=== PATIENT | female | born 1935 | race Caucasian/White ===

== ENCOUNTER 2020-08-30 03:02 | Emergency (ER) | payer OTHER, SELFPAY ==
[2020-08-30] VITALS (15 sets, daily range): BP systolic 142–190; BP diastolic 59–90; PULSE 60–74; RESP 16–25; TEMP 36.4; O2SAT 89–100
--- NOTE | ~2020-08-30 | CT_ITS ---
EXAMINATION: CT brain wo con DATE: 08/30/2020 03:31 INDICATION: Headache and syncope. TECHNIQUE: Computed tomography (CT) of the head was performed without intravenous contrast. Sagittal and coronal reconstructions were performed. The mA was adjusted according to patient size. Iterative reconstruction technique was employed. The dose-length product was 605.33 mGy-cm. COMPARISON: Brain MR dated 04/15/2017 FINDINGS: Small region of cystic encephalomalacia in the right peritrigonal white matter consistent with small lacunar infarct. No acute intracranial hemorrhage, acute infarction or abnormal extra axial fluid col lection. There is mild to moderate scattered white matter hypoattenuation consistent with chronic sma ll vessel ischemic disease. Symmetric prominence of the sulci consistent with mild age-appropriate di ffuse cerebral volume loss. Ventricles are normal and symmetric. No mass/mass effect. Changes of bila teral intraocular lens replacement. The orbits, paranasal sinuses and mastoid air cells are normal. I ntracranial calcified cerebral atherosclerosis is noted. IMPRESSION: 1. No acute intracranial process. 2. 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 3. Age-related changes including mild diffuse volume loss and mild to moderate scattered white matter hypoattenuation consistent with chronic small vessel ischemic disease. Reviewed, dictated and finalized at location A. IMPRESSION: 1. No acute intracranial process. 2. 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 3. Age-related changes including mild diffuse volume loss and mild to moderate scattered white matter hypoattenuation consistent with chronic small vessel isc hemic disease.
--- NOTE | 2020-08-30 03:04 | ECG_ITS ---
Measurements Intervals [place] Rate: 64 P: 48 [place]: 224 QRS: 11 QRSD: 82 T: 48 QT: 381 QTc: 395 Interpretive Statements SINUS RHYTHM WITH FIRST DEGREE AV BLOCK BASELINE ARTIFACT- I, III, AVL, AVF, V1-V3 ABNORMAL ECG Electronically Signed On 08-30-2020 8:31:19 CDT by Toney Bradley D.O.
--- NOTE | 2020-08-30 03:04 | ED.SYNCOPE ---
HPI - Syncope General Chief Complaint: Syncope Stated Complaint: passed out Time Seen by Provider: 08/30/20 03:03 History of Present Illness HPI narrative: 84 yo female brought in from home by private vehicle. She got up from bed to go to the bathroom. She remembers that it took her longer than usual to begin urinating then usual. She then stood up from the toilet and then next thing she remembers she was on the floor. After she awoke she vomited and had a loose stool. EMS was called, but by the time they arrived her vitals were normal and she chose to come in by car. On arrival here she says that she feels nauseated and has a posterior STEVENS. She had a similar STEVENS yesterday following a physical therapy session for vertigo. Related Data Home Medications Medication Instructions Recorded Confirmed antiarthritic combination no.2 900 mg PO 11/16/19 03/14/20 mg tablet bimatoprost 0.01 % eye drops 1 drop EACH EYE DAILY 11/16/19 03/14/20 cholecalciferol (vitamin D3) 25 1,000 unit PO DAILY 11/16/19 03/14/20 mcg (1,000 unit) capsule multivitamin 1 tablet PO DAILY 11/16/19 03/14/20 vit A 7,160 unit-vit C 113 mg-vit tablet PO 11/16/19 03/14/20 E 100 [id number] tablet losartan 25 mg tablet 25 mg PO DAILY 08/20/20 losartan 08/30/20 Allergies Allergy/AdvReac Type Severity Reaction Status Date / Time latex Allergy Severe RASH Verified 08/30/20 03:27 codeine Allergy Mild DECREASED Verified 08/30/20 03:27 BP Penicillins Allergy Mild RASH Verified 08/30/20 03:27 Sulfa (Sulfonamide Allergy Unknown unknown Verified 08/30/20 03:27 Antibiotics) epinephrine AdvReac Intermediate Drop in BP Verified 08/30/20 03:27 Review of Systems Review of Systems: All systems reviewed & are unremarkable except as noted in HPI and below Constitutional: Constitutional: Denies fever(s) ENT: Reports vertigo and Reports dizziness Cardiovascular: Cardiovascular: Denies chest pain Respiratory: Respiratory: Denies dyspnea Gastrointestinal: Gastrointestinal: Denies abdominal pain, Reports diarrhea, Reports nausea and Reports vomiting Genitourinary: Genitourinary: Denies hematuria and Denies dysuria Neurologic: Denies confusion, Reports vertigo, Reports syncope, Reports headache(s) and Denies numbness PMFSH Past Medical History Medical History Benign essential tremor Bladder prolapse (~2011) BPPV (benign paroxysmal positional vertigo) Essential (primary) hypertension Glaucoma open angle Hematuria Hyperlipidemia IBS (irritable bowel syndrome) Right foot pain (~2018) Seborrheic dermatitis Temporal arteritis (~2012) Urinary frequency Urinary incontinence Surgical History Surgical History H/O cataract extraction (~2012) History of knee surgery (~2009) Hx of hysterectomy (~2011) Family History Family History Sibling Patient's sister is in good health Family history of malignant neoplasm Patient's brother is Father Family history of malignant neoplasm Patient's father is Mother Family history of malignant neoplasm Patient's mother is Diabetes mellitus Family history of cardiovascular disease Social History Social History Smoking status: Never smoker Alcohol intake: never Exam Const: General: no acute distress and alert Nutritional Appearance: well nourished Orientation/consciousness: patient oriented x3 HENMT: Head: normal to inspection Resp: Effort & Inspection: normal respiratory effort Auscultation: clear to auscultation bilaterally Cardio: Rate: regular rate Rhythm: regular rhythm GI: GI Palp: Yes Soft to palpation and No Tenderness to palpation present (GI) Skin: General skin exam: normal color Neuro: General: patient oridede
--- NOTE | 2020-08-30 03:24 | PC.NURSE ---
Pt. to ct.
--- NOTE | 2020-08-30 03:24 | PC.NURSE ---
Pt. states she cannot go to the bathroom at this time.
[2020-08-30] MEDS: diphenhydrAMINE HCl INJ 50 MG/ML VIAL 25 MG IV PUSH (03:37)
[2020-08-30] MEDS: METOCLOPRAMIDE HCL INJ 10 MG/2 ML VIAL IV PUSH (03:37)
[2020-08-30] MEDS: SODIUM CHLORIDE 0.9% IV 500 ML 999 ML IV CONT (03:37)
[2020-08-30 03:52] LABS: Basophils Absolute Auto 0.1 K/mm3 (0.0-0.1); Basophils Percent Auto 0.4 % (0.2-1.2); Eosinophils Absolute Auto 0.1 K/mm3 (0-0.3); Eosinophils Percent Auto 0.7 % (0-4.4); Hematocrit 39.4 % (37.0-47.0); Hemoglobin 13.2 g/dL (12.0-15.0); Immature Granulocyte Percent A 0.7 % (0-0.5); Lymphocytes Absolute Auto 3.54 K/mm3 (0.9-3.2); Lymphocytes Percent Auto 25.6 % (18.3-44.2); Mean Corpuscular HGB Conc 33.5 g/dl (32-36); Mean Corpuscular Hemoglobin 31.8 pg (26-34); Mean Corpuscular Volume 94.9 fl (80-100); Mean Platelet Volume 8.8 fl (7.4-10.4); Monocytes Absolute Auto 1.5 K/mm3 (0.1-0.6); Monocytes Percent Auto 10.9 % (2.6-8.5); Neutrophils Absolute Auto 8.5 K/mm3 (1.3-6.7); Neutrophils Percent Auto 61.7 % (45.5-73.1); Platelet Count Result 408 k/mm3 (150-375); Red Blood Count 4.15 M/mm3 (4.2-5.4); Red Cell Distribution Width 13.3 % (11.5-14.5); White Blood Count 13.8 K/mm3 (4.5-10.0)
[2020-08-30 04:04] LABS: Alanine Aminotransferase 19 U/L (4-35); Albumin Level 3.9 g/dL (3.5-5.1); Alkaline Phosphatase 62 U/L (38-126); Anion Gap 10 mmol/L (8-16); Aspartate Amino Transferase 22 U/L (14-36); Bilirubin,Total 0.2 mg/dL (0.2-1.3); Blood Urea Nitrogen 19 mg/dL (7-17); Calcium 9.5 mg/dL (8.4-10.2); Carbon Dioxide 29 mmol/L (22-30); Chloride 101 mmol/L (98-107); Estimated CRCL calculation 42 ml/min; Estimated Glomerular Filt Rate > 60; Glucose 87 mg/dL (65-105); Lipase 90 U/L (23-300); Potassium 3.4 mmol/L (3.4-5.0); Sodium 140 mmol/L (137-145)
[2020-08-30 04:16] LABS: Add Urine Microscopic? NO; Appearance Urine Clear (Clear); Bilirubin Urine Negative (Negative); Blood Urine Negative (Negative); Color Urine Yellow (Yellow); Glucose Urine UA Negative (Negative); Ketones Urine Negative (Negative); Leukocyte Esterase Ur Negative LEU/UL (Negative); Nitrate Urine Negative (Negative); Protein Urine Negative (Negative); Specific Grav Ur 1.013 (1.001-1.035); Urobilinogen Urine Negative mg/dL (<2.0)
== END 2020-08-30 05:30 | disposition home or self-care (01) ==
PROVIDERS: Emergency Provider Emergency Medicine
DX: R55 Syncope and collapse (principal); R11.2 Nausea with vomiting, unspecified; I10 Essential (primary) hypertension; H40.9 Unspecified glaucoma; E78.5 Hyperlipidemia, unspecified; K58.9 Irritable bowel syndrome, unspecified; Z98.49 Cataract extraction status, unspecified eye; I44.0 Atrioventricular block, first degree
CPT/HCPCS: 36415; 70450; 80053; 81003; 83690; 85025; 93005; 96361; 96374; 96375; 99284; J1200; J2765; J7040

== ENCOUNTER → 2020-09-03 11:03 | Outpatient (CLI) | payer OTHER, SELFPAY ==
--- NOTE | ~2020-09-03 | XR_ITS ---
XR sacrum coccyx min 2V DATE: 09/03/2020 11:31 INDICATION: Low back pain, sacral coccyx, coccygeal pain TECHNIQUE: AP, angled AP and lateral views of sacrum and coccyx COMPARISON: 09/27/2018 CT abdomen pelvis FINDINGS: Diffuse osteopenia. No sacral or coccygeal fracture or bone destruction is evident. Normal alignment at the pubic symphys is and sacroiliac joints. Hip joint spaces appear symmetric and relatively preserved. Some soft tissu e calcifications of the left buttock are noted. IMPRESSION: Osteopenia; no sacral or coccygeal fracture or bone destruction is detected Reviewed, dictated and finalized at location A.
--- NOTE | ~2020-09-03 | XR_ITS ---
XR cervical spine 4-5V DATE: 09/03/2020 11:31 INDICATION: Neck pain TECHNIQUE: AP, open-mouth, lateral, swimmer views COMPARISON: None FINDINGS: C1 and C2 are normally aligned and the odontoid process is intact. No fracture or dislocati on or locked facet or prevertebral soft tissue swelling. There is mild loss of interspace height at C5-6 and moderate loss of interspace height at C6-7. There is mild to moderate uncovertebral joint spurring at C5-6 and C6-7 and degenerative change at the apo physeal joints. IMPRESSION: No fracture or dislocation Degenerative changes Reviewed, dictated and finalized at location A.
== END ==
PROVIDERS: PCP Family Medicine; Visit Provider Family Medicine
DX: M50.30 Other cervical disc degeneration, unspecified cervical region (principal); M85.88 Other specified disorders of bone density and structure, other site
CPT/HCPCS: 72050; 72220

== ENCOUNTER 2020-09-25 16:31 | Outpatient (CLI) | payer OTHER, SELFPAY ==
--- NOTE | ~2020-09-25 | MR_ITS ---
EXAMINATION: MR brain/brain stem wo con EXAM DATE: 09/25/2020 17:13 INDICATION: Vertigo. TECHNIQUE: Magnetic resonance imaging (MRI) of the brain/brain stem obtained without contrast. Sagitt al T1, axial diffusion, gradient echo (T2*), T1, T2, FLAIR sequences obtained. Comparison is made to prior examination from 04/15/2017. FINDINGS: There are no areas of restricted diffusion to suggest acute infarction. Punctate old infarc tion the right middle cerebral peduncle. There is no acute hemorrhage seen on the T2*, a hemosiderin sensitive sequence. No intraparenchymal brain mass lesion. There is moderate periventricular and sub cortical T2/FLAIR signal hyperintensity, nonspecific but probably related to small vessel ischemic di sease (microangiopathy). There is moderate prominence of the sulci and ventricles related to cerebr al atrophy. There are no extra-axial collections. Flow voids are seen in the cerebral arteries on the T2-weighted sequences consistent with their expected patency. Patient has had bilateral ocular l ens surgery. Soft tissue is unremarkable. IMPRESSION: 1. No acute intracranial findings. 2. Chronic age related findings. 3. 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 Reviewed, dictated and finalized at location A. 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
== END 2020-09-25 16:32 | disposition home or self-care (01) ==
PROVIDERS: PCP Physician Assistant; Visit Provider Physician Assistant
DX: R42 Dizziness and giddiness (principal); I63.81 Other cerebral infarction due to occlusion or stenosis of small artery; Z86.73 Personal history of transient ischemic attack (TIA), and cerebral infarction without residual deficits
CPT/HCPCS: 70551

== ENCOUNTER 2020-12-27 15:07 | Outpatient (CLI) | payer OTHER, SELFPAY ==
[2020-12-27 15:43] LABS: Anion Gap 9 mmol/L (8-16); Blood Urea Nitrogen 16 mg/dL (7-17); Calcium 8.6 mg/dL (8.4-10.2); Carbon Dioxide 32 mmol/L (22-30); Chloride 84 mmol/L (98-107); Estimated Glomerular Filt Rate > 60; Glucose 84 mg/dL (65-105); Potassium 3.4 mmol/L (3.4-5.0); Sodium 125 mmol/L (137-145)
== END 2020-12-27 15:08 | disposition home or self-care (01) ==
LOC: ANHLAB 15:09
PROVIDERS: PCP Physician Assistant; Visit Provider Physician Assistant
DX: E87.1 Hypo-osmolality and hyponatremia (principal)
CPT/HCPCS: 36415; 80048

== ENCOUNTER 2021-01-02 11:56 | Outpatient (CLI) | payer OTHER, SELFPAY ==
[2021-01-02 12:34] LABS: Anion Gap 5 mmol/L (8-16); Blood Urea Nitrogen 10 mg/dL (7-17); Carbon Dioxide 31 mmol/L (22-30); Chloride 101 mmol/L (98-107); Estimated Glomerular Filt Rate > 60; Glucose 89 mg/dL (65-105); Potassium 4.2 mmol/L (3.4-5.0); Sodium 137 mmol/L (137-145)
[2021-01-02 15:26] LABS: Sodium Urine Random 99 meq/L
[2021-01-05 23:10] LABS: Osmolality, Urine 283 mOsm/kg (50-1200)
== END 2021-01-02 11:57 | disposition home or self-care (01) ==
PROVIDERS: PCP Physician Assistant; Visit Provider Physician Assistant
DX: E87.1 Hypo-osmolality and hyponatremia (principal)
CPT/HCPCS: 36415; 80048; 83935; 84300

== ENCOUNTER 2021-01-11 09:11 | Outpatient (CLI) | payer OTHER, SELFPAY ==
[2021-01-11 10:20] LABS: Anion Gap 4 mmol/L (8-16); Blood Urea Nitrogen 13 mg/dL (7-17); Calcium 8.9 mg/dL (8.4-10.2); Carbon Dioxide 29 mmol/L (22-30); Chloride 105 mmol/L (98-107); Estimated Glomerular Filt Rate > 60; Glucose 96 mg/dL (65-105); Potassium 4.3 mmol/L (3.4-5.0); Sodium 138 mmol/L (137-145)
[2021-01-11 10:51] LABS: Cortisol Random 6.02 ug/dL
[2021-01-15 15:31] LABS: Adrenocorticotropic Hormone 9 pg/mL (6-50)
== END 2021-01-11 09:12 | disposition home or self-care (01) ==
PROVIDERS: PCP Physician Assistant; Visit Provider Physician Assistant
DX: E87.1 Hypo-osmolality and hyponatremia (principal)
CPT/HCPCS: 36415; 80048; 82024; 82533

== ENCOUNTER 2022-05-14 18:37 | Emergency (ER) | payer OTHER, SELFPAY ==
[2022-05-14] VITALS (9 sets, daily range): BP systolic 186–195; BP diastolic 71–79; PULSE 57–61; RESP 18; TEMP 36.6; O2SAT 95–100
--- NOTE | ~2022-05-14 | CT_ITS ---
EXAMINATION: CT brain wo con DATE: 05/14/2022 19:22 INDICATION: Headache, dizziness. 229/98 blood pressure. TECHNIQUE: Computed tomography (CT) of the head was performed without intravenous contrast. The mA wa s adjusted according to patient size. Iterative reconstruction technique was employed. Exam dose: 60 5.33 mGy-cm total exam DLP. COMPARISON: 09/25/2020 MRI brain/brainstem 08/30/2020 CT brain FINDINGS: There is prominent bilateral carotid siphon and supraclinoid internal carotid artery calcif ication There is nonspecific diminished attenuation of the cerebral white matter, likely due to chronic small vessel ischemic changes. There is prominent cerebellar and cerebral volume loss. No subdural or epidural hematoma is detected. Included paranasal sinuses and mastoid air cells are normally developed and aerated. No fracture or bone destruction of the cranial vault. IMPRESSION: Cerebral atherosclerosis and chronic small vessel ischemic changes of the cerebral white matter No acute intracranial finding Reviewed, dictated and finalized at Location [facility]. Reviewed, dictated and finalized at location A.
--- NOTE | 2022-05-14 19:14 | ECG_ITS ---
Measurements Intervals [place] Rate: 57 P: 13 [place]: 274 QRS: -7 QRSD: 86 T: 24 QT: 406 QTc: 398 Interpretive Statements SINUS BRADYCARDIA WITH FIRST DEGREE AV BLOCK EARLY PRECORDIAL R/S TRANSITION VOLTAGE CRITERIA FOR LVH ABNORMAL ECG Electronically Signed On 05-14-2022 20:29:28 CDT by Toney Bradley D.O.
--- NOTE | 2022-05-14 19:14 | ED.GENADULT ---
HPI - General Adult General Chief complaint: Unspecified Stated complaint: high blood pressure Time Seen by Provider: 05/14/22 19:01 Source: RN notes reviewed History of Present Illness HPI narrative: Patient presents emergency department from home for hypertension. Patient states that she has been checking her blood pressure at home and noticed to be elevated in the 200s systolic. Patient states that with that she has mild dizziness but states she always has some mild dizziness she denies any recent illness she denies any fevers or chills chest pain shortness of breath abdominal pain nausea vomiting or any other symptoms. States that she does have a history of hypertension and takes medication and she did take her medication this morning Related Data Home Medications Medication Instructions Recorded Confirmed antiarthritic combination no.2 900 mg PO 11/16/19 03/14/20 mg tablet (glucosamine-chondroitin) bimatoprost 0.01 % eye drops 1 drop ophthalmic (eye) DAILY 11/16/19 03/14/20 (Lumigan) cholecalciferol (vitamin D3) 25 1,000 unit PO DAILY 11/16/19 03/14/20 mcg (1,000 unit) capsule multivitamin 1 tablet PO DAILY 11/16/19 03/14/20 vit A 7,160 unit-vit C 113 mg-vit tablet PO 11/16/19 03/14/20 E 100 ccuw-mgej-eyhixk tablet losartan 25 mg tablet 25 mg PO DAILY 08/20/20 losartan 25 mg tablet 08/30/20 Allergies Allergy/AdvReac Type Severity Reaction Status Date / Time latex Allergy Severe RASH Verified 08/30/20 03:27 codeine Allergy Mild DECREASED Verified 08/30/20 03:27 BP Penicillins Allergy Mild RASH Verified 08/30/20 03:27 Sulfa (Sulfonamide Allergy Unknown unknown Verified 08/30/20 03:27 Antibiotics) epinephrine AdvReac Intermediate Drop in BP Verified 08/30/20 03:27 Review of Systems Review of Systems: Gen.: Denies fevers or chills Eyes: Denies eye pain or visual change ENT: Denies congestion Respiratory: Denies shortness of breath or cough CV: Denies chest pain or palpitations GI: Denies abdominal pain nausea, emesis or diarrhea Musculoskeletal: Denies back pain or muscle pain Neuro: Reports mild dizziness headache Skin: Denies rash Except as documented, all other systems reviewed and negative [facility] Past Medical History Medical History Benign essential tremor Bladder prolapse (~2011) BPPV (benign paroxysmal positional vertigo) Essential (primary) hypertension Glaucoma open angle Hematuria Hyperlipidemia IBS (irritable bowel syndrome) Right foot pain (~2018) Seborrheic dermatitis Temporal arteritis (~2012) Urinary frequency Urinary incontinence Surgical History Surgical History H/O cataract extraction (~2012) History of knee surgery (~2009) Hx of hysterectomy (~2011) Family History Family History Sibling Patient's sister is in good health Family history of malignant neoplasm Patient's brother is Father Family history of malignant neoplasm Patient's father is Mother Family history of malignant neoplasm Patient's mother is Diabetes mellitus Family history of cardiovascular disease Social History Social History Smoking status: Never smoker Alcohol intake: never Exam Narrative: APPEARANCE: No acute distress, nontoxic, resting in bed EYES: EOMI HEENT: Normocephalic, atraumatic, OMM RESPIRATORY: No respiratory distress Clear to auscultation bilaterally with no rhonchi wheezing or rales. CARDIOVASCULAR: Regular rate and rhythm without murmurs rubs or gallops. ABDOMINAL: Soft, nontender, nondistended, no rebound or guarding MUSCULOSKELETAl: Moves all extremities. No clubbing, cyanosis or edema. NEURO: Awake and alert x 4. Following commands, speech normal, no focal deficits SKIN:: Warm, dry. No rashes
[2022-05-14 19:46] LABS: Basophils Absolute Auto 0.1 K/mm3 (0.0-0.1); Eosinophils Absolute Auto 0.2 K/mm3 (0-0.3); Eosinophils Percent Auto 2.8 % (0-4.4); Hematocrit 35.1 % (37.0-47.0); Hemoglobin 11.8 g/dL (12.0-15.0); Immature Granulocyte Absolute 0.02 K/mm3 (0.00-0.031); Immature Granulocyte Percent A 0.2 % (0-0.5); Lymphocytes Absolute Auto 2.64 K/mm3 (0.9-3.2); Lymphocytes Percent Auto 32.6 % (18.3-44.2); Mean Corpuscular HGB Conc 33.6 g/dl (32-36); Mean Corpuscular Hemoglobin 31.1 pg (26-34); Mean Corpuscular Volume 92.4 fl (80-100); Mean Platelet Volume 9.1 fl (7.4-10.4); Monocytes Absolute Auto 0.9 K/mm3 (0.1-0.6); Monocytes Percent Auto 11.1 % (2.6-8.5); Neutrophils Absolute Auto 4.2 K/mm3 (1.3-6.7); Neutrophils Percent Auto 52.3 % (45.5-73.1); Platelet Count Result 333 k/mm3 (150-375); Red Cell Distribution Width 13.2 % (11.5-14.5); White Blood Count 8.1 K/mm3 (4.5-10.0)
[2022-05-14 19:48] LABS: Appearance Urine Clear (Clear); Bilirubin Urine Negative (Negative); Color Urine Yellow (Yellow); Glucose Urine UA Negative (Negative); Ketones Urine Trace mg/dL (Negative); Leukocyte Esterase Ur Negative LEU/UL (Negative); Nitrate Urine Negative (Negative); Protein Urine Negative (Negative); Specific Grav Ur 1.015 (1.001-1.035); Urobilinogen Urine 0.2 mg/dL (<2.0)
[2022-05-14 19:56] LABS: Alanine Aminotransferase 21 U/L (6-35); Albumin Level 4.3 g/dL (3.5-5.1); Alkaline Phosphatase 64 U/L (38-126); Anion Gap 9 mmol/L (8-16); Aspartate Amino Transferase 35 U/L (14-36); Bilirubin,Total 0.3 mg/dL (0.2-1.3); Blood Urea Nitrogen 14 mg/dL (7-17); Calcium 8.8 mg/dL (8.4-10.2); Carbon Dioxide 22 mmol/L (22-30); Chloride 97 mmol/L (98-107); Estimated CRCL calculation 46 ml/min; Estimated Glomerular Filt Rate > 60; Glucose 92 mg/dL (65-110); Potassium 3.8 mmol/L (3.4-5.0); Sodium 128 mmol/L (137-145)
[2022-05-14 19:57] LABS: Bacteria Urine Trace /hpf; Mucus Urine Rare /lpf; RBC Urine 0-2 /hpf (0-2); Squamous Epithelial Cell Urine Occasional /hpf (Few); WBC Urine 0-3 /hpf
[2022-05-14 19:58] LABS: Add Urine Microscopic? YES; Blood Urine Trace-Intact (Negative)
== END 2022-05-14 22:00 | disposition home or self-care (01) ==
PROVIDERS: Emergency Provider Emergency Medicine; PCP Family Medicine
DX: I10 Essential (primary) hypertension (principal); E78.5 Hyperlipidemia, unspecified
CPT/HCPCS: 36415; 70450; 80053; 81001; 85025; 93005; 99284

== ENCOUNTER 2022-08-24 09:59 | Emergency (ER) | payer OTHER, SELFPAY ==
[2022-08-24 10:14] VITALS: BP 114/57; PULSE 66; RESP 20; TEMP 36.9; O2SAT 100
--- NOTE | 2022-08-24 10:18 | ED.GENADULT ---
HPI - General Adult General Chief complaint: Dizziness Stated complaint: dizziness Time Seen by Provider: 08/24/22 10:18 Mode of arrival: ambulatory Limitations: no limitations History of Present Illness HPI narrative: 86-year-old female presents with concern for acute onset of dizziness, low blood pressure, urine frequency, dysuria. She reports she recently had COVID, she finished her COVID antiviral medications yesterday. She reports she typically has a high blood pressure, when she felt dizzy she checked it and it was low with the diastolic of 50. She reports chills overnight. She reports left low back pain MD complaint: Dizziness Related Data Home Medications Medication Instructions Recorded Confirmed antiarthritic combination no.2 900 mg PO 11/16/19 03/14/20 mg tablet (glucosamine-chondroitin) bimatoprost 0.01 % eye drops 1 drop ophthalmic (eye) DAILY 11/16/19 03/14/20 ([place]igan) cholecalciferol (vitamin D3) 25 1,000 unit PO DAILY 11/16/19 03/14/20 mcg (1,000 unit) capsule multivitamin 1 tablet PO DAILY 11/16/19 03/14/20 vit A 7,160 unit-vit C 113 mg-vit tablet PO 11/16/19 03/14/20 E 100 vigt-ubqe-bwgpvq tablet losartan 25 mg tablet 25 mg PO DAILY 08/20/20 Allergies Allergy/AdvReac Type Severity Reaction Status Date / Time latex Allergy Severe RASH Verified 08/30/20 03:27 codeine Allergy Mild DECREASED Verified 08/30/20 03:27 BP Penicillins Allergy Mild RASH Verified 08/30/20 03:27 Sulfa (Sulfonamide Allergy Unknown unknown Verified 08/30/20 03:27 Antibiotics) epinephrine AdvReac Intermediate Drop in BP Verified 08/30/20 03:27 Review of Systems Review of Systems: CONSTITUTIONAL: Reports malaise, chills CARDIOVASCULAR: Denies chest pain, palpitations, or edema. RESPIRATORY: Denies cough or dyspnea. GASTROINTESTINAL: Denies abdominal pain, vomiting, diarrhea. Reports nausea GENITOURINARY: Denies dysuria report, frequency, small amounts of urine MUSCULOSKELETAL: Reports left low back pain, myalgia. NEUROLOGIC: Reports dizziness All systems reviewed & are unremarkable except as noted in HPI and below PMFSH Past Medical History Medical History Benign essential tremor Bladder prolapse (~2011) BPPV (benign paroxysmal positional vertigo) Essential (primary) hypertension Glaucoma open angle Hematuria Hyperlipidemia IBS (irritable bowel syndrome) Right foot pain (~2018) Seborrheic dermatitis Temporal arteritis (~2012) Urinary frequency Urinary incontinence Surgical History Surgical History H/O cataract extraction (~2012) History of knee surgery (~2009) Hx of hysterectomy (~2011) Family History Family History Sibling Patient's sister is in good health Family history of malignant neoplasm Patient's brother is Father Family history of malignant neoplasm Patient's father is Mother Family history of malignant neoplasm Patient's mother is Diabetes mellitus Family history of cardiovascular disease Social History Social History Smoking status: Never smoker Alcohol intake: never Comments At time of signature, agree with nursing past medical, surgical, social and family history. There is no relevant family history pertinent to the presenting complaint Exam Narrative: GENERAL: Nontoxic appearing and in no acute distress. HEAD: Normocephalic. EYES: PERRLA, conjunctivae clear. NECK: Supple. No lymphadenopathy CHEST: Clear to auscultation. No respiratory distress. HEART: Regular rate and rhythm. ABDOMEN: Soft, mild right lower quadrant tenderness nondistended, normal active bowel sounds, no palpable or pulsatile masses, no guarding. Last CVA tenderness SKIN: Warm, dry, no rash. NEURO: Alert and oriented
== END 2022-08-24 10:59 | disposition short-term general hospital (02) ==
PROVIDERS: Emergency Provider Nurse Practitioner
DX: N39.0 Urinary tract infection, site not specified (principal); I10 Essential (primary) hypertension; H40.9 Unspecified glaucoma; E78.5 Hyperlipidemia, unspecified; Z86.16 Personal history of COVID-19
CPT/HCPCS: 81003; 99212; G0463

== ENCOUNTER 2022-08-24 11:14 | Inpatient (IN) | payer OTHER, SELFPAY ==
--- NOTE | ~2022-08-24 | CT_ITS ---
EXAMINATION: CT abdomen pelvis w con DATE: 08/24/2022 13:17 INDICATION: Left lower quadrant abdominal pain. TECHNIQUE: Computed tomography (CT) of the abdomen and pelvis was performed with 100 mL Omnipaque 350 intravenous contrast. Automated exposure control and iterative reconstruction technique were employe d. The dose-length product was 349.57 mGy-cm. COMPARISON: CT abdomen and pelvis 09/27/2018 FINDINGS: The visualized portions of the lung bases demonstrate mild atelectasis. No pleural effusion . The heart size is normal. No pericardial effusion. There is a moderate-sized sliding hiatal hernia. There are cysts in the liver measuring up to 12 mm. The gallbladder, spleen, pancreas, adrenal gland s, and kidneys are normal. There is urothelial thickening involving the ureters bilaterally, consiste nt with pyelitis. There is diverticulosis of the colon without evidence of diverticulitis. The append ix is normal. There are no dilated loops of bowel. There are no pathologically enlarged lymph nodes. There is no free intraperitoneal fluid. There is mild chronic anterior wedging of T9-T12 vertebral colton dies. There is mild thoracolumbar spondylosis. IMPRESSION: 1. Bilateral pyelitis. 2. Moderate-sized sliding hiatal hernia. Reviewed, dictated and finalized at location B.
[2022-08-24 11:28] VITALS: BP 137/63; PULSE 66; RESP 18; TEMP 36.6; O2SAT 99
[2022-08-24 11:31] LABS: Basophils Percent Auto 0.3 % (0.2-1.2); Eosinophils Percent Auto 0.1 % (0-4.4); Hematocrit 38.3 % (37.0-47.0); Immature Granulocyte Absolute 0.04 K/mm3 (0.00-0.031); Immature Granulocyte Percent A 0.3 % (0-0.5); Lymphocytes Absolute Auto 1.41 K/mm3 (0.9-3.2); Lymphocytes Percent Auto 11.8 % (18.3-44.2); Mean Corpuscular HGB Conc 33.9 g/dl (32-36); Mean Corpuscular Hemoglobin 31.9 pg (26-34); Mean Corpuscular Volume 93.9 fl (80-100); Mean Platelet Volume 8.7 fl (7.4-10.4); Monocytes Absolute Auto 1.2 K/mm3 (0.1-0.6); Monocytes Percent Auto 10.3 % (2.6-8.5); Neutrophils Absolute Auto 9.3 K/mm3 (1.3-6.7); Neutrophils Percent Auto 77.2 % (45.5-73.1); Platelet Count Result 391 k/mm3 (150-375); Red Blood Count 4.08 M/mm3 (4.2-5.4); Red Cell Distribution Width 13.3 % (11.5-14.5)
[2022-08-24 11:41] LABS: Alanine Aminotransferase 27 U/L (6-35); Albumin Level 4.5 g/dL (3.5-5.1); Alkaline Phosphatase 89 U/L (38-126); Anion Gap 11 mmol/L (8-16); Aspartate Amino Transferase 34 U/L (14-36); Bilirubin,Total 0.6 mg/dL (0.2-1.3); Blood Urea Nitrogen 13 mg/dL (7-17); Carbon Dioxide 25 mmol/L (22-30); Chloride 90 mmol/L (98-107); Estimated CRCL calculation 34 ml/min; Estimated Glomerular Filt Rate > 60; Glucose 125 mg/dL (65-110); Lipase 61 U/L (23-300); Potassium 4.4 mmol/L (3.4-5.0); Sodium 126 mmol/L (137-145)
[2022-08-24 12:12] LABS: Add Urine Microscopic? YES; Appearance Urine Turbid (Clear); Bilirubin Urine Negative (Negative); Blood Urine 2+ (Negative); Color Urine Yellow (Yellow); Glucose Urine UA Negative (Negative); Ketones Urine Negative (Negative); Leukocyte Esterase Ur 3+ LEU/UL (Negative); Mucus Urine Heavy /lpf; Nitrate Urine Positive (Negative); Protein Urine 2+ mg/dL (Negative); RBC Urine >75 /hpf (0-2); Specific Grav Ur 1.012 (1.001-1.035); Squamous Epithelial Cell Urine Many /hpf (Few); Urobilinogen Urine Negative mg/dL (<2.0); WBC Clumps Urine Present /HPF; WBC Urine >75 /hpf
--- NOTE | 2022-08-24 12:22 | ED.ABDPAIN ---
HPI - Abdominal Pain General Chief Complaint: Abdominal Pain Stated Complaint: flank pain Time Seen by Provider: 08/24/22 12:19 Source: patient Mode of arrival: ambulatory Limitations: no limitations History of Present Illness HPI narrative: 56 years old white female came to the emergency room by private car complaining of lower abdominal pain bilaterally mainly on the left side started yesterday, this morning been feeling sick, chills, weak unable to get out of bed. Tested positive for COVID on August 09, 2022. Patient noticed increased frequency of urination with burning sensation and discomfort. She denies any fever or vomiting, patient lives alone. Related Data Home Medications Medication Instructions Recorded Confirmed antiarthritic combination no.2 900 mg PO 11/16/19 03/14/20 mg tablet (glucosamine-chondroitin) bimatoprost 0.01 % eye drops 1 drop ophthalmic (eye) DAILY 11/16/19 03/14/20 ([place]igan) cholecalciferol (vitamin D3) 25 1,000 unit PO DAILY 11/16/19 03/14/20 mcg (1,000 unit) capsule multivitamin 1 tablet PO DAILY 11/16/19 03/14/20 vit A 7,160 unit-vit C 113 mg-vit tablet PO 11/16/19 03/14/20 E 100 bvgs-vqrc-kzraxo tablet losartan 25 mg tablet 25 mg PO DAILY 08/20/20 Allergies Allergy/AdvReac Type Severity Reaction Status Date / Time latex Allergy Severe RASH Verified 08/30/20 03:27 codeine Allergy Mild DECREASED Verified 08/30/20 03:27 BP Penicillins Allergy Mild RASH Verified 08/30/20 03:27 Sulfa (Sulfonamide Allergy Unknown unknown Verified 08/30/20 03:27 Antibiotics) epinephrine AdvReac Intermediate Drop in BP Verified 08/30/20 03:27 Review of Systems Review of Systems: All systems reviewed & are unremarkable except as noted in HPI and below PMFSH Past Medical History Medical History Benign essential tremor Bladder prolapse (~2011) BPPV (benign paroxysmal positional vertigo) Essential (primary) hypertension Glaucoma open angle Hematuria Hyperlipidemia IBS (irritable bowel syndrome) Right foot pain (~2018) Seborrheic dermatitis Temporal arteritis (~2012) Urinary frequency Urinary incontinence Surgical History Surgical History H/O cataract extraction (~2012) History of knee surgery (~2009) Hx of hysterectomy (~2011) Family History Family History Sibling Patient's sister is in good health Family history of malignant neoplasm Patient's brother is Father Family history of malignant neoplasm Patient's father is Mother Family history of malignant neoplasm Patient's mother is Diabetes mellitus Family history of cardiovascular disease Social History Social History Smoking status: Never smoker Alcohol intake: never Exam Narrative: General appearance: Well-developed, well-nourished Skin: Normal color Head: Normocephalic, nontraumatic Eyes: Clear conjunctiva ENT: Oropharynx normal, ears normal, nose normal Neck: Supple, nontender Chest and respiratory: Airway patent, no respiratory distress, no accessory muscle use Heart: Regular rate/rhythm Abdomen: Soft, diffuse abdominal tenderness, no guarding or rebound, no organomegaly, quiet bowel sounds Vascular: Normal peripheral pulses, normal capillary refill. 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
[2022-08-24] MEDS: SODIUM CHLORIDE 0.9% IV 1,000 ML 999 ML IV CONT (14:01)
[2022-08-24] MEDS: ONDANSETRON INJ 4 MG/2 ML VIAL IV PUSH (14:01)
[2022-08-24 15:21] LABS: SARS-CoV-2 RNA PCR Positive
[2022-08-24] MEDS: SODIUM CHLORIDE 0.9% IV 1,000 ML 100 ML IV CONT (15:54)
--- NOTE | 2022-08-24 16:00 | PM.IMHP ---
H&P: HPI History of Present Illness Date/Time: 08/24/22 1600 Chief Complaint: flank pain, weakness Narrative: Patient is a 86 year old HTN, Prostate cancer, frequent UTI who presented to the ED with flank pain and weakness. Patient stated that on 08/09/2022 she was diagnosed with covid. She stated that over the last couple of days she has noticed that she has been getting slower with activity. Her son was also present stated this morning at 6:00 a.m. she called him and stated that she she was unable to really do anything. He stated that she was able to get up and go to the bathroom however she just was not able to get around as well. He stated when he got over there that she was very weak and unable to move around. They did go to Urgent Care today before they came to the ED and it was found that the urine sample they gave showed a UTI however they were unable to do any further testing on the urine. Upon arriving here it was noted that the patient does have flank pain bilaterally. Patient denies any current chest pain, shortness a breath, vomiting, headache, urinary dysfunction, cough, fevers, sweats, chills. Patient did state that she has lightheadedness and dizziness off and on and does faint however this has been going on for the last couple years. She also stated that she was nauseous when she came in and has been gagging. Her sodium was noted to be low upon arrival however her son stated that her sodium is either higher low all the time and they been battling that for about 5 years. Patient did see a bookseamer blindstitch however she stated that she is trying to switch all of her care to [facility]. Patient is being admitted to the hospitalist service under inpatient Review of Systems Review of Systems: All systems reviewed & are unremarkable except as noted in HPI and below PMFSH Past Medical History Medical History Benign essential tremor Bladder prolapse (~2011) BPPV (benign paroxysmal positional vertigo) CVA (cerebral vascular accident) Essential (primary) hypertension Glaucoma open angle Hematuria Hyperlipidemia Hyponatremia IBS (irritable bowel syndrome) Right foot pain (~2018) Seborrheic dermatitis Syncope Temporal arteritis (~2012) Urinary frequency Urinary incontinence Surgical History Surgical History H/O cataract extraction (~2012) History of knee surgery (~2009) Hx of hysterectomy (~2011) Family History Family History Sibling Patient's sister is in good health Family history of malignant neoplasm Patient's brother is Father Family history of malignant neoplasm Patient's father is Mother Family history of malignant neoplasm Patient's mother is Diabetes mellitus Family history of cardiovascular disease Social History Social History Social History: Patient currently lives alone however her son is around to help her all the time. Grady is her POA and does take care of her. She does have a dog at home. 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
[2022-08-24 16:07] LABS: Creatinine Urine 122.1 mg/dL; Urea Random Urine 195 MG/DL
[2022-08-24 16:30] LABS: Sodium Urine Random 36 meq/L
[2022-08-24 16:35] VITALS: BP 134/72; PULSE 85; RESP 16; TEMP 36.7; O2SAT 100
[2022-08-24 19:49] LABS: Sodium 129 mmol/L (137-145)
[2022-08-24] MEDS: OXYBUTYNIN CHLORIDE 5 MG TABLET PO (21:17)
[2022-08-24 21:18] VITALS: TEMP 38
[2022-08-24] MEDS: ACETAMINOPHEN 325 MG TABLET 650 MG PO (21:18)
[2022-08-24 21:29] VITALS: BP 120/51; PULSE 105; RESP 20; TEMP 38; O2SAT 95
[2022-08-24 22:18] VITALS: TEMP 36.6
[2022-08-24 23:35] VITALS: TEMP 36.6
[2022-08-25] MEDS: SODIUM CHLORIDE 0.9% IV 1,000 ML 100 ML IV CONT ×2 (01:48→17:03)
[2022-08-25 05:46] VITALS: BP 113/53; PULSE 85; RESP 18; TEMP 37.2; O2SAT 99
[2022-08-25 06:14] LABS: Basophils Percent Auto 0.2 % (0.2-1.2); Eosinophils Percent Auto 0.2 % (0-4.4); Hematocrit 34.5 % (37.0-47.0); Hemoglobin 11.6 g/dL (12.0-15.0); Immature Granulocyte Absolute 0.06 K/mm3 (0.00-0.031); Immature Granulocyte Percent A 0.5 % (0-0.5); Lymphocytes Absolute Auto 1.08 K/mm3 (0.9-3.2); Lymphocytes Percent Auto 8.6 % (18.3-44.2); Mean Corpuscular HGB Conc 33.6 g/dl (32-36); Monocytes Absolute Auto 1.8 K/mm3 (0.1-0.6); Monocytes Percent Auto 14.5 % (2.6-8.5); Neutrophils Absolute Auto 9.6 K/mm3 (1.3-6.7); Platelet Count Result 323 k/mm3 (150-375); Red Blood Count 3.63 M/mm3 (4.2-5.4); Red Cell Distribution Width 13.3 % (11.5-14.5); White Blood Count 12.6 K/mm3 (4.5-10.0)
[2022-08-25 06:37] LABS: Alanine Aminotransferase 26 U/L (6-35); Albumin Level 3.4 g/dL (3.5-5.1); Alkaline Phosphatase 68 U/L (38-126); Anion Gap 8 mmol/L (8-16); Aspartate Amino Transferase 29 U/L (14-36); Bilirubin,Total 0.4 mg/dL (0.2-1.3); Blood Urea Nitrogen 14 mg/dL (7-17); Calcium 8.2 mg/dL (8.4-10.2); Carbon Dioxide 26 mmol/L (22-30); Chloride 101 mmol/L (98-107); Cholesterol 154 mg/dL (0-200); Estimated CRCL calculation 34 ml/min; Estimated Glomerular Filt Rate > 60; Glucose 110 mg/dL (65-110); HDL Direct 50 mg/dL; Magnesium 2.2 mg/dL (1.6-2.3); Potassium 3.7 mmol/L (3.4-5.0); Sodium 135 mmol/L (137-145); Triglycerides 62 mg/dL (<150)
[2022-08-25 06:48] LABS: LDL Cholesterol Direct 79 mg/dL
[2022-08-25 08:00] VITALS: BP 97/85; PULSE 83; RESP 16; TEMP 36.3; O2SAT 97
[2022-08-25] MEDS: ENOXAPARIN 40 MG/0.4 ML SYRINGE SUB-Q (09:29)
[2022-08-25] MEDS: MULTIVITAMINS THERAPEUTIC TAB (*BKC) 1 TABLET PO (09:29)
[2022-08-25] MEDS: LATANOPROST 0.005% OP SOLN 2.5 ML BTL 1 DROP EACH EYE (09:29)
[2022-08-25] MEDS: cefTRIAXone 2 GM in SODIUM CHLORIDE 0.9% IV 100 ML 200 ML IVPB (09:52)
[2022-08-25] MEDS: ACETAMINOPHEN 325 MG TABLET 650 MG PO (13:45)
[2022-08-25 14:00] VITALS: BP 121/84; PULSE 80; RESP 14; TEMP 36.1; O2SAT 97
--- NOTE | 2022-08-25 15:42 | PM.IMPN ---
Progress Note: A&P Assessment and Plan (1) Acute pyelonephritis: Code(s): N10 - Acute pyelonephritis Status: Acute Assessment and Plan: CT Abd/Pel bilateral pyelitis, moderate-sized Bilateral flank pain WBC 12.0 UA does appear to be infectious Trend WBC Adjust antibiotics as indicated 08/25/2022 interval history: 86-year-old female was brought emergency department with flank pain is found to have pyelonephritis patient being treated with a ceftriaxone 1 g q.day will escalate to 2 g daily will follow-up on urine culture and sensitivity and further recommendation to follow, is feeling much better compared to when she arrived, patient denies any abdominal pain nausea or vomiting fever or chill, patient is present in the room answered all his questions, will continue to monitor will have a PT OT evaluate the patient and further recommendation to follow. (2) Urinary tract infection: Code(s): N39.0 - Urinary tract infection, site not specified Status: Inactive Assessment and Plan: UA does appear infection Culture in progress Continue antibiotics Adjust antibiotics with sensitivity reports Trend urine output (3) Hyponatremia: Code(s): E87.1 - Hypo-osmolality and hyponatremia Status: Acute Assessment and Plan: Current Na 126 Sodium chloride 100ml/hr Trend Na closely Adjust therapy as indicated (4) Hyperlipidemia: Qualifiers: Hyperlipidemia type: mixed hyperlipidemia Qualified Code(s): E78.2 - Mixed hyperlipidemia Code(s): E78.5 - Hyperlipidemia, unspecified Status: Chronic Assessment and Plan: Lipid panel in the am Consider statin therapy if indicated (5) Essential (primary) hypertension: Code(s): I10 - Essential (primary) hypertension Status: Chronic Assessment and Plan: BP is 134/72 Continue home losartan trend BP Adjust therapy as indicated Subjective Date/time seen: 08/25/22 15:42 flank pain, weakness HPI-Narrative: Patient is a 86 year old HTN, frequent UTI who presented to the ED with flank pain and weakness.? Patient stated that on 08/09/2022 she was diagnosed with covid.? She stated that over the last couple of days she has noticed that she has been getting slower with activity.? Her son was also present stated this morning at 6:00 a.m. she called him and stated that she she was unable to really do anything.? He stated that she was able to get up and go to the bathroom however she just was not able to get around as well.? He stated when he got over there that she was very weak and unable to move around.? They did go to Urgent Care today before they came to the ED and it was found that the urine sample they gave showed a UTI however they were unable to do any further testing on the urine.? Upon arriving here it was noted that the patient does have flank pain bilaterally.? Patient denies any current chest pain, shortness a breath, vomiting, headache, urinary dysfunction, cough, fevers, sweats, chills.? Patient did state that she has lightheadedness and dizziness off and on and does faint however this has been going on for the last couple years.? She also stated that she was nauseous when she came in and has been gagging.? Her sodium was noted to be low upon arrival however her son stated that her sodium is either higher low all the time and they been battling that for about 5 years.? Patient did see a space scheduler however she stated that she is trying to switch all of her care to [facility]. 08/25/2022 interval history: 86-year-old female was brought emergency department with flank pain is found to have pyelonephritis patient being treated with a ceftriaxone 1 g q.day will escalate to 2 g daily will follow-up on urine culture and sensitivity and further recommendation to follow, is feeling much better compared to when she arrived, patient byron
[2022-08-25] MEDS: OXYBUTYNIN CHLORIDE 5 MG TABLET PO (21:39)
[2022-08-25 22:00] VITALS: BP 139/71; PULSE 84; RESP 18; TEMP 36.6; O2SAT 97
[2022-08-26] MEDS: SODIUM CHLORIDE 0.9% IV 1,000 ML 100 ML IV CONT (03:00)
[2022-08-26 06:46] LABS: Hematocrit 31.3 % (37.0-47.0); Hemoglobin 10.8 g/dL (12.0-15.0); Mean Corpuscular HGB Conc 34.5 g/dl (32-36); Mean Corpuscular Hemoglobin 31.6 pg (26-34); Mean Corpuscular Volume 91.5 fl (80-100); Mean Platelet Volume 8.9 fl (7.4-10.4); Platelet Count Result 350 k/mm3 (150-375); Red Blood Count 3.42 M/mm3 (4.2-5.4); Red Cell Distribution Width 13.1 % (11.5-14.5); White Blood Count 9.7 K/mm3 (4.5-10.0)
[2022-08-26 07:07] LABS: Potassium 3.2 mmol/L (3.4-5.0); Sodium 136 mmol/L (137-145)
[2022-08-26 07:08] LABS: Anion Gap 8 mmol/L (8-16); Blood Urea Nitrogen 6 mg/dL (7-17); Calcium 8.1 mg/dL (8.4-10.2); Carbon Dioxide 24 mmol/L (22-30); Chloride 104 mmol/L (98-107); Estimated CRCL calculation 44 ml/min; Estimated Glomerular Filt Rate > 60; Glucose 99 mg/dL (65-110)
--- NOTE | 2022-08-26 08:21 | PM.IMPN ---
Progress Note: A&P Assessment and Plan (1) Acute pyelonephritis: Code(s): N10 - Acute pyelonephritis Status: Acute Assessment and Plan: CT with bilateral pyelitis and initially had bilateral flank pain tenderness. Now with resolution of tenderness on the right and persistent tenderness on the left. Urine culture with e. coli pending sensitivities. Clinically improved. -Will need 14 days of treatment with antibiotics -Continue ceftriaxone 2g IV daily (2) Urinary tract infection: Code(s): N39.0 - Urinary tract infection, site not specified Status: Inactive Assessment and Plan: Urine culture with e. coli. Sensitivities pending. Continue ceftriaxone. (3) Hyponatremia: Code(s): E87.1 - Hypo-osmolality and hyponatremia Status: Acute Assessment and Plan: Sodium improved. Discontinue IVF this morning. (4) Hyperlipidemia: Qualifiers: Hyperlipidemia type: mixed hyperlipidemia Qualified Code(s): E78.2 - Mixed hyperlipidemia Code(s): E78.5 - Hyperlipidemia, unspecified Status: Chronic Assessment and Plan: Continue home statin. (5) Essential (primary) hypertension: Code(s): I10 - Essential (primary) hypertension Status: Chronic Assessment and Plan: Controlled. Continue home losartan. Will monitor. Subjective Date/time seen: 08/26/22 08:21 Patient says she feels much better. Says she had left sided back pain when she arrived but this has improved. Denies fevers, chills. Son present at bedside with questions about treatment and plan of care. All questions answered. Advised that sensitivities are pending, which will determine the antibiotics the patient will need to take for a total of 14 days duration treatment. Review of Systems Constitutional: Comments: No fevers or chills Exam Narrative: GENERAL: NAD, cooperative HEENT: Normocephalic, atraumatic, anicteric NECK: Supple CV: Normal S1, S2, RRR, No MRG RESP: CTAB, Normal work of breathing. Abdomen: Left sided CVA tenderness, no right sided CVA tenderness EXTREMITIES: Warm and well perfused, no clubbing, cyanosis SKIN: warm, dry and intact. NEURO: CN 2-12 grossly intact. Objective Data Vital Signs Vital Signs: Vital Signs - 24 hr 08/25/22 09:30 08/25/22 10:57 08/25/22 14:00 Temperature 36.1 C L Pulse Rate 80 Respiratory Rate 14 Blood Pressure 121/84 Pulse Oximetry 97 Oxygen Delivery Room Air Room Air 08/25/22 22:00 Temperature 36.6 C Pulse Rate 84 Respiratory Rate 18 Blood Pressure 139/71 Pulse Oximetry 97 Oxygen Delivery Intake/Output Intake/Output: Intake & Output 08/23/22 08/24/22 08/25/22 08/26/22 23:59 23:59 23:59 23:59 Intake Total 240 3050 1000 Output Total 600 750 Balance 240 2450 250 Meds/Results Medications: Active Medications Generic Name Dose Route Start Last Admin Trade Name Freq PRN Reason Stop Dose Admin Acetaminophen 650 mg 08/24/22 15:35 08/25/22 13:45 Acetaminophen 325 Mg Tablet PO 650 mg Q4H PRN Administration Mild Pain (1-3) or Fever Hydrocodone Bitart/Acetaminophen 1 tab 08/24/22 15:35 Hydrocodone/Acetaminophen (*Crx) 5-325 Mg Tablet PO Q4H PRN Moderate Pain (4-10) Amlodipine Besylate 5 mg 08/25/22 09:00 08/25/22 10:24 Amlodipine Besylate 5 Mg Tablet PO Not Given DAILY FORTINO Enoxaparin Sodium 40 mg 08/25/22 09:00 08/25/22 09:29 Enoxaparin 40 Mg/0.4 Ml Syringe SUB-Q 40 mg DAILY FORTINO Administration Sodium Chloride 1,000 mls @ 100 mls/hr 08/24/22 14:15 08/26/22 03:00 Normal Saline Iv IV CONT 100 mls/hr .Q10H FORTINO Administration Ceftriaxone Sodium 2 gm/ 100 mls @ 200 mls/hr 08/25/22 09:00 08/25/22 10:22 Sodium Chloride IVPB Infused Q24H FORTINO Infusion Latanoprost 1 drop 08/25/22 09:00 08/25/22 09:29 Latanoprost 0.005% Op Soln 2.5 M
[2022-08-26] MEDS: cefTRIAXone 2 GM in SODIUM CHLORIDE 0.9% IV 100 ML 200 ML IVPB (08:23)
[2022-08-26] MEDS: MULTIVITAMINS THERAPEUTIC TAB (*BKC) 1 TABLET PO (08:35)
[2022-08-26] MEDS: LATANOPROST 0.005% OP SOLN 2.5 ML BTL 1 DROP EACH EYE (08:35)
[2022-08-26] MEDS: LOSARTAN POTASSIUM 25 MG TABLET PO (08:35)
[2022-08-26] MEDS: amLODIPine BESYLATE 5 MG TABLET PO (08:35)
[2022-08-26] MEDS: ENOXAPARIN 40 MG/0.4 ML SYRINGE SUB-Q (08:35)
[2022-08-26 14:00] VITALS: BP 122/65; PULSE 93; RESP 16; TEMP 35.9; O2SAT 100
[2022-08-26] MEDS: ACETAMINOPHEN 325 MG TABLET 650 MG PO (17:23)
[2022-08-26 20:00] VITALS: PULSE 82; RESP 20; O2SAT 92
[2022-08-26] MEDS: OXYBUTYNIN CHLORIDE 5 MG TABLET PO (21:17)
[2022-08-26 21:51] VITALS: BP 149/56; PULSE 82; RESP 20; TEMP 36.4; O2SAT 92
[2022-08-27] MEDS: POTASSIUM CHLORIDE 20 MEQ PACKET (FOR LIQUID) PO (00:09)
[2022-08-27 06:00] VITALS: BP 133/61; PULSE 90; RESP 16; TEMP 37.1; O2SAT 94
[2022-08-27 06:56] LABS: Hematocrit 32.2 % (37.0-47.0); Hemoglobin 11.1 g/dL (12.0-15.0); Mean Corpuscular HGB Conc 34.5 g/dl (32-36); Mean Corpuscular Hemoglobin 31.5 pg (26-34); Mean Corpuscular Volume 91.5 fl (80-100); Mean Platelet Volume 8.6 fl (7.4-10.4); Platelet Count Result 363 k/mm3 (150-375); Red Blood Count 3.52 M/mm3 (4.2-5.4); Red Cell Distribution Width 12.9 % (11.5-14.5); White Blood Count 7.9 K/mm3 (4.5-10.0)
[2022-08-27 07:08] LABS: Anion Gap 7 mmol/L (8-16); Blood Urea Nitrogen 6 mg/dL (7-17); Calcium 8.5 mg/dL (8.4-10.2); Carbon Dioxide 25 mmol/L (22-30); Chloride 103 mmol/L (98-107); Estimated CRCL calculation 44 ml/min; Estimated Glomerular Filt Rate > 60; Glucose 99 mg/dL (65-110); Potassium 3.6 mmol/L (3.4-5.0); Sodium 135 mmol/L (137-145)
[2022-08-27] MEDS: cefTRIAXone 2 GM in SODIUM CHLORIDE 0.9% IV 100 ML 200 ML IVPB (08:48)
[2022-08-27] MEDS: LOSARTAN POTASSIUM 25 MG TABLET PO (08:49)
[2022-08-27] MEDS: amLODIPine BESYLATE 5 MG TABLET PO (08:49)
[2022-08-27] MEDS: MULTIVITAMINS THERAPEUTIC TAB (*BKC) 1 TABLET PO (08:49)
[2022-08-27 08:50] VITALS: PULSE 92
[2022-08-27] MEDS: bisoproloL fumarate 5 MG TABLET PO (08:50)
[2022-08-27] MEDS: ARTIFICIAL TEARS OPHTH SOLN 15 ML BOTTLE 1 DROP EACH EYE (08:51)
[2022-08-27] MEDS: LATANOPROST 0.005% OP SOLN 2.5 ML BTL 1 DROP EACH EYE (08:51)
[2022-08-27] MEDS: ACETAMINOPHEN 325 MG TABLET 650 MG PO ×2 (08:57→16:33)
[2022-08-27 11:00] VITALS: O2SAT 98
[2022-08-27 14:00] VITALS: BP 117/57; PULSE 70; RESP 16; TEMP 36.2; O2SAT 100
--- NOTE | 2022-08-27 16:22 | PM.DS ---
DS: Admitting Diagnosis Discharge Date 08/27/2022 Admitting Diagnosis Complicated Urinary Tract Infection DS: Discharge Diagnosis Discharge Diagnosis (1) Acute pyelonephritis: Code(s): N10 - Acute pyelonephritis Status: Acute Assessment and Plan: CT with bilateral pyelitis and initially had bilateral flank pain tenderness. Now with resolution of tenderness on the right and persistent, but less tenderness on the left. Urine culture with e. coli sensitive cephalosporins resistant to penicillins. Clinically improved. Dose of ceftriaxone given for today. -Discharge to home to complete cefdinir 300 mg BID to be completed 09/07/22 (2) Urinary tract infection: Code(s): N39.0 - Urinary tract infection, site not specified Status: Inactive Assessment and Plan: Urine culture with e. coli sensitive to ceftriaxone. Last dose given prior to discharge and will complete treatment outpatient with cefdinir to finish on 09/07/22. Advised patient to follow up with primary care physician by Wednesday of next week. Patient and family member at bedside and verbalized understanding of the plan. (3) Hyponatremia: Code(s): E87.1 - Hypo-osmolality and hyponatremia Status: Acute Assessment and Plan: Sodium improved. (4) Hyperlipidemia: Qualifiers: Hyperlipidemia type: mixed hyperlipidemia Qualified Code(s): E78.2 - Mixed hyperlipidemia Code(s): E78.5 - Hyperlipidemia, unspecified Status: Chronic Assessment and Plan: Continue home statin. (5) Essential (primary) hypertension: Code(s): I10 - Essential (primary) hypertension Status: Chronic Assessment and Plan: Controlled. Continue home losartan. DS: Summary Hospital Course Reason for hospitalization: Complicated Urinary Tract Infection Hospital Course: 86F with a past medical history of hypertension, recurrent urinary tract infections, temporal arteritis, hyperlipidemia, hyponatremia, stroke, glaucoma who presented to the emergency department with flank pain and weakness. Patient had CT abdomen pelvis, which showed bilateral pyelitis and a moderate sized sliding hiatal hernia. Urine culture grew Escherichia coli resistant to penicillins but sensitive to the ceftriaxone that was started in the emergency department. Patient clinically improved with resolution of flank pain on the right and much less flank pain on the left at the time of discharge. Patient advised to follow up with primary care by 08/31/22. Patient discharged to home with cefdinir to complete a total of 14 days of treatment for a complicated urinary tract infection. Time Spent with Patient Time attestation: Total time spent providing and/or coordinating discharge services: Exam Narrative: GENERAL: NAD, cooperative HEENT: Normocephalic, atraumatic, anicteric NECK: Supple CV: Normal S1, S2, RRR, No MRG RESP: CTAB, Normal work of breathing. Abdomen: mild Left sided CVA tenderness, no right sided CVA tenderness EXTREMITIES: Warm and well perfused, no clubbing, cyanosis SKIN: warm, dry and intact. NEURO: CN 2-12 grossly intact. DS: Data Data Completed and Pending Labs on day of discharge: Labs from last 24 hours 08/27/22 08/27/22 06:47 06:47 WBC 7.9 RBC 3.52 L Hgb 11.1 L Hct 32.2 L MCV 91.5 MCH 31.5 MCHC 34.5 RDW 12.9 Plt Count 363 MPV 8.6 Sodium 135 L Potassium 3.6 Chloride 103 Carbon Dioxide 25 Anion Gap 7 L BUN 6 L Creatinine 0.60 L Estim Creat Clear Calc 44 Estimated GFR > 60 Glucose 99 Calcium 8.5 Laboratory Tests 08/24/22 08/24/22 08/24/22 11:26 11:26 11:52 WBC 12.0 H RBC 4.08 L Hgb 13.0 Hct 38.3 MCV 93.9 MCH 31.9 MCHC 33.9 RDW 13.3 Plt Count 391 H MPV 8.7 Immature Gran % (Auto) 0.3 Neut % (Auto) 77.2 H Lymph % (Auto) 11.8 L
[2022-08-27 17:07] LABS: Osmolality, Urine 320 mOsm/kg (50-1200)
== END 2022-08-27 17:35 | disposition home or self-care (01) | DRG 689 ==
LOC: ANHED 14:12 → ANH3MEDSUR 08-25 12:17
PROVIDERS: Emergency Medicine; Family Medicine; Nurse Practitioner; Admitting Provider Student in an Organized Health Care Education/Training Program; Emergency Provider Emergency Medicine; Visit Provider Family Medicine
DX: U07.1 COVID-19 (principal); N10 Acute pyelonephritis; E87.1 Hypo-osmolality and hyponatremia; B96.20 Unspecified Escherichia coli [E. coli] as the cause of diseases classified elsewhere; K44.9 Diaphragmatic hernia without obstruction or gangrene; E78.2 Mixed hyperlipidemia; I10 Essential (primary) hypertension; G25.0 Essential tremor; H81.10 Benign paroxysmal vertigo, unspecified ear; H40.10X0 Unspecified open-angle glaucoma, stage unspecified; K58.9 Irritable bowel syndrome, unspecified; Z79.899 Other long term (current) drug therapy; Z88.0 Allergy status to penicillin; Z88.2 Allergy status to sulfonamides; Z87.440 Personal history of urinary (tract) infections
CPT/HCPCS: 36415; 74177; 80048; 80053; 80061; 81001; 81003; 82570; 83690; 83735; 83935; 84295; 84300; 84540; 85025; 85027; 87077; 87086; 87088; 87186; 96374; 97110; 97162; 97165; 97530; 99212; 99285; A9270; C9803; G0463; J0696; J1650; J2405; J7030; Q9967; U0003; U0005

== ENCOUNTER 2022-09-07 10:03 | Outpatient (CLI) | payer OTHER, SELFPAY ==
[2022-09-07 19:18] LABS: Alanine Aminotransferase 30 U/L (6-35); Albumin Level 4.3 g/dL (3.5-5.1); Alkaline Phosphatase 72 U/L (38-126); Anion Gap 11 mmol/L (8-16); Aspartate Amino Transferase 28 U/L (14-36); Bilirubin,Total 0.4 mg/dL (0.2-1.3); Blood Urea Nitrogen 15 mg/dL (7-17); Calcium 9.3 mg/dL (8.4-10.2); Carbon Dioxide 24 mmol/L (22-30); Chloride 101 mmol/L (98-107); Estimated Glomerular Filt Rate > 60; Glucose 102 mg/dL (65-110); Potassium 4.3 mmol/L (3.4-5.0); Sodium 136 mmol/L (137-145)
== END 2022-09-07 10:04 | disposition home or self-care (01) ==
LOC: ANHGOSHLAB 10:06
PROVIDERS: Visit Provider Nurse Practitioner
DX: E87.1 Hypo-osmolality and hyponatremia (principal)
CPT/HCPCS: 36415; 80053

== ENCOUNTER 2022-09-10 10:20 | Outpatient (CLI) | payer OTHER, SELFPAY ==
[2022-09-10 18:38] LABS: Appearance Urine Slightly Cloudy (Clear); Bilirubin Urine Negative (Negative); Blood Urine Negative (Negative); Color Urine Yellow (Yellow); Glucose Urine UA Negative (Negative); Ketones Urine Negative (Negative); Leukocyte Esterase Ur Trace LEU/UL (Negative); Nitrate Urine Negative (Negative); Protein Urine Negative (Negative); Specific Grav Ur 1.015 (1.001-1.035); Urobilinogen Urine 0.2 mg/dL (<2.0)
[2022-09-10 18:43] LABS: Mucus Urine Rare /lpf; RBC Urine 0-2 /hpf (0-2); Squamous Epithelial Cell Urine Moderate /hpf (Few); WBC Urine 0-3 /hpf
[2022-09-10 18:47] LABS: Add Urine Microscopic? YES
== END 2022-09-10 10:21 | disposition home or self-care (01) ==
LOC: ANHGOSHLAB 10:23
PROVIDERS: PCP Family Medicine; Visit Provider Nurse Practitioner
DX: R30.0 Dysuria (principal)
CPT/HCPCS: 81001

== ENCOUNTER 2022-12-16 11:00 | Outpatient (CLI) | payer OTHER, SELFPAY ==
--- NOTE | ~2022-12-16 | CT_ITS ---
EXAMINATION: CT lumbar spine wo con DATE: 12/16/2022 11:29 INDICATION: Low back pain. TECHNIQUE: Computed tomography (CT) of the lumbar spine was performed without intravenous contrast. A utomated exposure control and iterative reconstruction technique were employed. The dose-length produ ct was 361.56 mGy-cm. COMPARISON: None FINDINGS: There is a small sliding hiatal hernia. There is 8 degrees dextrocurvature of lumbar spine. There is 3 mm retrolisthesis of L1 on L2. There is mild chronic anterior wedging of T11 and T12 vert ebral bodies. There is mildly decreased disc height from T12-L1 through L4-L5. The following disc lev els are specifically discussed: L1-L2: The disc is bulging. There is mild bilateral facet joint osteoarthritis. There is mild bilater al neural foraminal stenosis. There is mild central canal stenosis. L2-L3: The disc is bulging. There is mild bilateral facet joint osteoarthritis. There is mild bilater al neural foraminal stenosis. There is mild central canal stenosis. L3-L4: The disc is bulging. There is mild bilateral facet joint osteoarthritis. There is mild bilater al neural foraminal stenosis. There is mild central canal stenosis. L4-L5: The disc is bulging. There is moderate right and mild left facet joint osteoarthritis. There i s mild bilateral neural foraminal stenosis. There is mild central canal stenosis. L5-S1: The disc does not extend beyond the endplate margin. There is moderate bilateral facet joint o steoarthritis. There is no neural foraminal stenosis. There is no central canal stenosis. IMPRESSION: 1. Mild lumbar spondylosis. Reviewed, dictated and finalized at location A. RACT ANALYST IMPRESSION: 1. Mild lumbar spondylosis.
== END 2022-12-16 11:01 | disposition home or self-care (01) ==
PROVIDERS: PCP Family Medicine; Visit Provider Family Medicine
DX: M47.816 Spondylosis without myelopathy or radiculopathy, lumbar region (principal); M54.50 Low back pain, unspecified
CPT/HCPCS: 72131

== ENCOUNTER 2023-05-12 09:41 | Outpatient (CLI) | payer OTHER, SELFPAY ==
[2023-05-12 19:16] LABS: Hematocrit 34.9 % (37.0-47.0); Hemoglobin 11.6 g/dL (12.0-15.0); Mean Corpuscular HGB Conc 33.2 g/dl (32-36); Mean Corpuscular Hemoglobin 31.4 pg (26-34); Mean Corpuscular Volume 94.3 fl (80-100); Mean Platelet Volume 9.5 fl (7.4-10.4); Platelet Count Result 380 k/mm3 (150-375); Red Cell Distribution Width 12.6 % (11.5-14.5); White Blood Count 7.2 K/mm3 (4.5-10.0)
[2023-05-12 19:21] LABS: Vitamin D 25 Hydroxy 31.9 ng/mL
[2023-05-12 19:27] LABS: LDL Cholesterol Direct 96 mg/dL
[2023-05-12 19:34] LABS: Alanine Aminotransferase 21 U/L (6-35); Albumin Level 4.2 g/dL (3.5-5.1); Alkaline Phosphatase 59 U/L (38-126); Anion Gap 6 mmol/L (8-16); Aspartate Amino Transferase 37 U/L (14-36); Bilirubin,Total 0.5 mg/dL (0.2-1.3); Blood Urea Nitrogen 12 mg/dL (7-17); Carbon Dioxide 28 mmol/L (22-30); Chloride 98 mmol/L (98-107); Cholesterol 195 mg/dL (0-200); Estimated Glomerular Filt Rate > 60; Glucose 79 mg/dL (65-110); HDL Direct 67 mg/dL; Potassium 4.3 mmol/L (3.4-5.0); Sodium 132 mmol/L (137-145); Triglycerides 54 mg/dL (<150)
== END 2023-05-12 09:42 | disposition home or self-care (01) ==
LOC: ANHGOSHLAB 09:42
PROVIDERS: PCP Family Medicine; Visit Provider Nurse Practitioner
DX: E55.9 Vitamin D deficiency, unspecified (principal)
CPT/HCPCS: 36415; 80053; 80061; 82306; 84443; 85027

== ENCOUNTER 2023-06-30 08:40 | Outpatient (CLI) | payer OTHER, SELFPAY ==
--- NOTE | ~2023-06-30 | NM_ITS ---
EXAMINATION: NM bone scan whole body DATE: 06/30/2023 13:00 INDICATION: Back pain. TECHNIQUE: 26.2 mCi Tc-99m HDP was administered intravenously. Delayed whole-body scintigrams were o btained. COMPARISON: Thoracic spine CT 06/30/2023 FINDINGS: There is joint-centered increased activity at the acromioclavicular joints and right first carpometacarpal joint, likely osteoarthritis. There is no fracture. IMPRESSION: 1. No fracture. Reviewed, dictated and finalized at location A. IMPRESSION: 1. No fracture.
--- NOTE | ~2023-06-30 | CT_ITS ---
EXAMINATION: CT thoracic spine wo con DATE: 06/30/2023 08:59 INDICATION: Back pain. TECHNIQUE: Computed tomography (CT) of the thoracic spine was performed without intravenous contrast. Automated exposure control and iterative reconstruction technique were employed. The dose-length pro duct was 395.45 mGy-cm. COMPARISON: None FINDINGS: There is 8 degrees levocurvature of thoracic spine. There is mild chronic anterior wedging of T8-T12 vertebral bodies. There is mildly decreased disc height at T7-T8, T8-T9, T9-T10, and T10-T1 1. There is multilevel facet joint osteoarthritis, severe on the right at T2-T3 and severe on the lef t at T3-T4 and T7-T8. On the right, there is mild neural foraminal stenosis at T2-T3, T7-T8, and T12- L1. On the left, there is mild neural foraminal stenosis at T3-T4 and moderate neural foraminal steno sis at T7-T8. There is mild central canal stenosis at T12-L1. IMPRESSION: 1. Mild thoracic spondylosis. Reviewed, dictated and finalized at location A.
== END 2023-06-30 08:41 | disposition home or self-care (01) ==
PROVIDERS: PCP Family Medicine; Visit Provider Anesthesiology Pain Medicine
DX: M54.9 Dorsalgia, unspecified (principal); M47.816 Spondylosis without myelopathy or radiculopathy, lumbar region; G89.4 Chronic pain syndrome; M85.80 Other specified disorders of bone density and structure, unspecified site; M54.6 Pain in thoracic spine; M43.04 Spondylolysis, thoracic region
CPT/HCPCS: 72128; 78306; A9503

== ENCOUNTER 2023-07-13 07:36 | Day surgery (SDC) | payer OTHER, SELFPAY ==
--- NOTE | ~2023-07-13 | XR_ITS ---
EXAMINATION: XR fluoroscopy no charge INDICATION: Bilateral T7-8 transforaminal epidural steroid injection TECHNIQUE: 78 intraoperative fluoroscopic images are submitted for review. Total fluoroscopic time wa s 38.8 seconds. COMPARISON: None available FINDINGS: Fluoroscopic images demonstrate bilateral injections. Please refer to procedure note for fu ll details. IMPRESSION: 1. Please refer to procedure note for full details. Reviewed, dictated and finalized at location L.
--- NOTE | 2023-07-13 07:18 | WPDHPUPDATE1 ---
History and Physical Update Update Date/Time: 07/13/23 07:18 History and Physical has been reviewed, including an updated exam of the patient. There are NO changes in the patient's condition. Risks, benefits, and alternatives have been discussed and questions answered. Patient agrees to proceed with procedure.
[2023-07-13 08:15] VITALS: BP 163/58; PULSE 84; RESP 16; TEMP 36.6; O2SAT 99
[2023-07-13 09:20] VITALS: BP 181/74; PULSE 61; RESP 18; O2SAT 96
[2023-07-13 09:30] VITALS: BP 167/72; PULSE 65; RESP 18; O2SAT 98
[2023-07-13] MEDS: LIDOCAINE HCL 2% PF INJ 5 ML VIAL 3 ML INFILTRATE (09:30)
[2023-07-13] MEDS: LIDOCAINE HCL 1% PF INJ 5 ML VIAL 3 ML INFILTRATE (09:30)
[2023-07-13 10:02] VITALS: BP 173/61; PULSE 61; RESP 16; O2SAT 100
--- NOTE | 2023-07-13 10:06 | W.PM.PROC2 ---
Procedure Note - Detailed Date of Procedure 07/13/23 Pre-op Diagnosis Radiculopathy, thoracic region Post-op Diagnosis Same Procedure Performed Bilateral T7-8 transforaminal epidural steroid injection under fluoroscopic guidance with contrast control. Surgeon Milton Lofton MD Anesthesia Local Indications bilateral mid to lower thoracic radiculopathy, known thoracic spinal stenosis at T7-8. Description of Procedure INFORMED CONSENT: Risks, benefits and alternatives to the procedure were discussed in detail with the patient who expressed explicit understanding and consent to proceed. Patient was informed verbally and in written form regarding the risks associated with the procedure including the low risk of serious infection, bleeding/bruising, allergic reaction, nerve or organ injury, paralysis, procedural site pain or discomfort, worsening pain and/or mobility, failure to treat and/or disfigurement. The patient expressed explicit understanding and consent to proceed. All materials required for the procedure were available prior to procedure start. Site and side was marked prior to procedure and confirmed in the presence of the patient. PROCEDURE IN DETAIL: The patient was brought to the procedural suite and placed in the prone position. Patient was made comfortable with use of pillows under the head/chest, hips and ankles. Skin overlying the injection site was prepared broadly with ChloraPrep applicator and draped in a sterile manner. Aseptic technique was employed throughout. The endplates of the vertebral body at the site of interest were aligned in the AP view. Ipsilateral oblique angulation was utilized to better visualize the neuroforamen of interest. Local anesthesia was established by infiltration with approximately 5 mL of 2% lidocaine via a 1-1/2 inch 27-gauge needle. A 22-gauge 3.5 inch Haja (pencil point) spinal needle was advanced until the needle approached the 6 o'clock position on the pedicle just superior to the exiting nerve root. on the Right at T7-8. Lateral view was utilized to confirm appropriate position of the needle tip within the superior and posterior portion of the respective foramen. In an AP view, 1 mL of Omnipaque 300 contrast medium was injected after negative aspiration for CSF, blood or other bodily fluid, showing appropriate neurogram without evidence of intravascular or intrathecal spread of contrast. Digital subtraction imaging was used with an additional 1ml of the same contrast medium to confirm absence of intravascular contrast spread. A 1mL solution containing 5 mg of dexamethasone was injected after negative repeat aspiration. Appropriate spread of the injectate was confirmed with washout of previously injected contrast. No parasthesias were elicited. Needle was removed completely intact without difficulty. The same exact procedure was repeated for all remaining levels on the contralateral side, left T7-8 neural foramen, modified as necessary to accommodate for the new target location with identical findings and results and no evidence of complication. Images were saved and documented in the patient chart. Patient's skin was cleaned and sterile bandage applied. The patient tolerated the procedure well. The patient was transported to the recovery area in stable condition where they were observed for an appropriate amount of time prior to discharge, without evidence of complication. The patient was instructed to avoid excessive activity for the next 48 hours, including climbing and frequent use of stairs. Showers only for 48 hours. They were instructed not to drive or operate heavy machinery for 24 hours. They are to monitor for severe headaches, fevers, chills, night sweats, erythema/swelling at the site or any other signs of infection, bleeding/bruising, bowel or bladder changes as well as new pain, weakness or numbness in the upper or lower extremity. Should they notice these changes, they are instructed to brant
== END 2023-07-13 10:02 | disposition home or self-care (01) ==
PROVIDERS: PCP Family Medicine; Visit Provider Anesthesiology Pain Medicine
PROC: (CPT 64479; principal; 2023-07-13 09:00)
DX: M54.14 Radiculopathy, thoracic region (principal)
CPT/HCPCS: 64479; 99199

== ENCOUNTER 2023-08-31 05:52 | Day surgery (SDC) | payer OTHER, SELFPAY ==
[2023-08-24 08:46] VITALS: BMI 23.8
--- NOTE | ~2023-08-31 | XR_ITS ---
XR fluoroscopy no charge Procedure: Bilateral T6, T7 and T8 medial branch block TECHNIQUE: Fluoroscopy used during Bilateral T6, T7 and T8 medial branch block performed by [Silverio Lofton MD] on 08/31/2023. 40 seconds of fluoroscopy with 8 fluoroscopic images captured. FINDINGS: Correlate with procedure note. IMPRESSION: Fluoroscopy used during Bilateral T6, T7 and T8 medial branch block. Reviewed, dictated and finalized at location B. IMPRESSION: Fluoroscopy used during Bilateral T6, T7 and T8 medial branch block .
--- NOTE | 2023-08-31 04:50 | WPDHPUPDATE1 ---
History and Physical Update Update Date/Time: 08/31/23 04:50 History and Physical has been reviewed, including an updated exam of the patient. There are NO changes in the patient's condition. Risks, benefits, and alternatives have been discussed and questions answered. Patient agrees to proceed with procedure.
[2023-08-31 07:35] VITALS: BP 162/66; PULSE 65; RESP 18; TEMP 36.7; O2SAT 100; BMI 23.6
[2023-08-31 09:10] VITALS: BP 187/80; PULSE 69; RESP 20; O2SAT 99
[2023-08-31 09:20] VITALS: BP 174/81; PULSE 74; RESP 16; O2SAT 99
[2023-08-31] MEDS: LIDOCAINE HCL 1% PF INJ 5 ML VIAL XX (09:29)
[2023-08-31 09:30] VITALS: BP 169/97; PULSE 65; RESP 18; O2SAT 96
[2023-08-31] MEDS: BUPivacaine HCL 0.5% 10 ML AMP 3 ML INFILTRATE (09:30)
--- NOTE | 2023-08-31 09:32 | W.PM.PROC2 ---
Procedure Note - Detailed Date of Procedure 08/31/23 Pre-op Diagnosis Thoracic Spondylosis, pain in the thoracic spine Post-op Diagnosis Same Procedure Performed bilateral T6, T7, T8 medial branch blocks under fluoroscopic guidance with contrast controlled Surgeon Milton Lofton MD Anesthesia MAC and Local Indications chronic, recalcitrant and activity limiting axial thoracolumbar back pain with thoracic spondylosis unresponsive to conservative therapies. Description of Procedure INFORMED CONSENT: Risks, benefits and alternatives to the procedure were discussed in detail with the patient who expressed explicit understanding and consent to proceed. Patient was informed verbally and in written form regarding the risks associated with the procedure including the low risk of serious infection, bleeding/bruising, allergic reaction, nerve or organ injury, paralysis, procedural site pain or discomfort, worsening pain and/or mobility, failure to treat and/or disfigurement. The patient expressed explicit understanding and consent to proceed. All materials required for the procedure were available prior to procedure start. Site and side were marked prior to procedure and confirmed in the presence of the patient. PROCEDURE IN DETAIL: The patient was brought to the procedural suite and placed in the prone position. Patient was made comfortable with use of pillows under the head/chest, hips and ankles. Skin overlying the injection site on the affected side(s) was prepared broadly with ChloraPrep applicator and draped in a sterile manner. Aseptic technique was used throughout. The endplates of the vertebral bodies at the site(s) of interest were aligned in the AP view. Ipsilateral oblique angulation was utilized to optimize visualization of the intersection between the superior articulating process and transverse process at each target site. Local anesthesia was established by infiltration with approximately 5 mL of 1% lidocaine via a 1-1/2 inch 27-gauge needle. A 25-gauge 3.5 inch Quincke spinal needle was advanced until the needle tip contacted periosteum at the target site, right T6. Lateral view was utilized to confirm the appropriate placement of the needle tip just anterior to the facet line and superior to the pedicle. In the Lateral view, 0.25 mL of Omnipaque 300 contrast medium was injected after negative aspiration for CSF, blood or other bodily fluid, showing appropriate extra-articular spread of contrast without evidence of intravascular, foraminal or intrathecal placement. A 0.25 mL solution of 0.5% PF bupivacaine was injected after negative repeat aspiration. Appropriate spread of the injectate was confirmed with washout of previously injected contrast. No parasthesias were elicited. Needle was removed completely intact without difficulty. [The same procedure was repeated for all additional intended levels/structures treated on the ipsilateral side, right T7, T8 medial branches, with identical methodology modified to compensate for different location, with similar results and no evidence of complication. Patient tolerated this well.] [The same procedure was repeated for all additional intended levels/structures treated on the contralateral side, left T6, T7, T8 medial branches, with identical methodology modified to compensate for different location, with similar results and no evidence of complication. Patient tolerated this well.] Images were saved and documented in the patient chart. Patient's skin was cleansed and sterile bandage applied. The patient tolerated the procedure well. The patient was transported to the recovery area in stable condition where they were observed for an appropriate amount of time prior to discharge, without evidence of complication. Patient was instructed on the appropriate completion of a pain diary over the next 12-24 hours. The patient was instructed to avoid excessive activity for the next 48 hours, including climbing
== END 2023-08-31 09:56 | disposition home or self-care (01) ==
PROVIDERS: PCP Family Medicine; Visit Provider Anesthesiology Pain Medicine
PROC: (CPT 64490; principal; 2023-08-31 08:30)
DX: M47.814 Spondylosis without myelopathy or radiculopathy, thoracic region (principal)
CPT/HCPCS: 64490; 64491; 64492; 99199

== ENCOUNTER 2023-09-01 10:58 | Outpatient (CLI) | payer OTHER, SELFPAY ==
[2023-09-01 14:02] LABS: Alanine Aminotransferase 21 U/L (6-35); Albumin Level 4.3 g/dL (3.5-5.1); Alkaline Phosphatase 59 U/L (38-126); Anion Gap 7 mmol/L (8-16); Aspartate Amino Transferase 41 U/L (14-36); Bilirubin,Total 0.6 mg/dL (0.2-1.3); Blood Urea Nitrogen 14 mg/dL (7-17); CRP < 0.5 mg/dL (<1.0); Calcium 9.4 mg/dL (8.4-10.2); Carbon Dioxide 25 mmol/L (22-30); Chloride 97 mmol/L (98-107); Cholesterol 201 mg/dL (0-200); Estimated Glomerular Filt Rate 59; Glucose 91 mg/dL (65-110); HDL Direct 69 mg/dL; Potassium 4.3 mmol/L (3.4-5.0); Sodium 129 mmol/L (137-145); Triglycerides 87 mg/dL (<150)
[2023-09-01 14:13] LABS: LDL Cholesterol Direct 100 mg/dL
[2023-09-01 14:51] LABS: Erythrocyte Sedimentation Rate 18 mm/hr (0-20)
[2023-09-04 12:10] LABS: Vitamin D 1,25 (OH)2 Total 31 pg/mL (18-72); Vitamin D2 1,25 (OH)2 <8 pg/mL; Vitamin D3 1,25 (OH)2 31 pg/mL
== END 2023-09-01 10:59 | disposition home or self-care (01) ==
LOC: ANHGOSHLAB 10:59
PROVIDERS: PCP Family Medicine; Visit Provider Nurse Practitioner
DX: M31.6 Other giant cell arteritis (principal); E78.2 Mixed hyperlipidemia; E55.9 Vitamin D deficiency, unspecified; E87.1 Hypo-osmolality and hyponatremia; I10 Essential (primary) hypertension
CPT/HCPCS: 36415; 80053; 80061; 82652; 84443; 85652; 86140

== ENCOUNTER 2023-11-22 09:31 | Outpatient (CLI) | payer OTHER, SELFPAY ==
--- NOTE | ~2023-11-22 | DEXA_ITS ---
Bone Density Report Name: VINCENT CHAUHAN Age: 88 Sex: Female Ethnicity: White Date of : 1935 Indication: postmenopausal; screening for osteoporosis; hysterectomy; Referring Provider: NEO NOBLES Study: Bone densitometry was performed. Exam Date: November 22, 2023 Accession number: [id number] Bone Density: Region BMD T-score Z-score Classification AP Spine(L1-L4) 0.918 -1.2 1.7 Osteopenia Femoral Neck (Left) 0.613 -2.1 0.4 Osteopenia Total Hip (Left) 0.776 -1.4 1.0 Osteopenia Femoral Neck (Right) 0.617 -2.1 0.4 Osteopenia Total Hip (Right) 0.747 -1.6 0.7 Osteopenia Total Hip Mean 0.762 -1.5 0.9 Osteopenia World Health Organization criteria for BMD impression classify patients as: Normal (T-score at or above -1.0), Osteopenia (T-score between -1.0 and -2.5), or Osteoporosis (T-score at or below -2.5). 10-year Fracture Risk(1): Major Osteoporotic Fracture 13% Hip Fracture 4.4% Reported Risk Factors: [place] (), Neck BMD=0.613, BMI=24.5 (1) FRAX(R) Version 3.08. Fracture probability calculated for an untreated patient. Fracture probability may be lower if the patient has received treatment. Clinical Information Provided by Patient: Has used the following medications: Vitamin D, Calcium Has the following medical conditions: Hysterectomy Patient maximum height was 62 Menopause Age: 54 No regular weight bearing exercise Does not regularly consume dairy products Onset of menses at age 13 Number of children 2 Impression: The patient has low bone mass, based on the Left Femoral Neck T-score. The patient has an estimated ten-year risk of hip fracture of 4.4% and an estimated ten-year risk of major fracture of 13%, based on the WHO FRAX algorithm. Discussion: BONE DENSITY IS LOW AT ONE OR MORE SKELETAL SITES. THE PATIENT'S BMD AND CLINICAL RISK FACTORS CONTRIBUTE TO THIS PATIENT'S INCREASED RISK OF FRACTURE. This patient's lowest T-score is low at one or more skeletal sites. It meets the World Health Organization's (WHO) criteria for ?low bone mass? (T-score between -1.0 and -2.5). The patient's 10-year risk of hip fracture as calculated by FRAX exceeds the threshold where pharmacological therapy is recommended by the National Osteoporosis Foundation (NOF). However, all treatment decisions require clinical judgment and consideration of individual patient factors, including patient preferences, comorbidities, previous drug use, risk factors not captured in the FRAX model (e.g., frailty, falls, vitamin D deficiency, increased bone turnover, interval significant decline in bone density) and possible under or overestimation of fracture risk by FRAX. The patient should follow a healthful lifestyle (good nutrition with adequate calcium and vitamin D, and appropriate
== END 2023-11-22 09:32 | disposition home or self-care (01) ==
LOC: ANHIMG 09:32
PROVIDERS: PCP Family Medicine; Visit Provider Anesthesiology Pain Medicine
DX: M85.89 Other specified disorders of bone density and structure, multiple sites (principal)
CPT/HCPCS: 77080

== ENCOUNTER 2023-12-23 08:04 | Outpatient (CLI) | payer OTHER, SELFPAY ==
[2023-12-23 19:19] LABS: Hematocrit 37.9 % (37.0-47.0); Hemoglobin 12.3 g/dL (12.0-15.0); Mean Corpuscular HGB Conc 32.5 g/dl (32-36); Mean Corpuscular Hemoglobin 32.4 pg (26-34); Mean Corpuscular Volume 99.7 fl (80-100); Mean Platelet Volume 9.8 fl (7.4-10.4); Platelet Count Result 400 k/mm3 (150-375); Red Cell Distribution Width 13.1 % (11.5-14.5); White Blood Count 7.9 K/mm3 (4.5-10.0)
[2023-12-23 19:31] LABS: Alanine Aminotransferase 22 U/L (6-35); Albumin Level 4.2 g/dL (3.5-5.1); Alkaline Phosphatase 71 U/L (38-126); Anion Gap 6 mmol/L (8-16); Aspartate Amino Transferase 54 U/L (14-36); Bilirubin,Total 0.5 mg/dL (0.2-1.3); Blood Urea Nitrogen 12 mg/dL (7-17); Calcium 9.5 mg/dL (8.4-10.2); Carbon Dioxide 29 mmol/L (22-30); Chloride 99 mmol/L (98-107); Cholesterol 196 mg/dL (0-200); Estimated Glomerular Filt Rate 52; Glucose 84 mg/dL (65-110); HDL Direct 67 mg/dL; Potassium 4.5 mmol/L (3.4-5.0); Sodium 134 mmol/L (137-145); Triglycerides 76 mg/dL (<150)
[2023-12-23 19:42] LABS: LDL Cholesterol Direct 98 mg/dL
[2023-12-23 19:44] LABS: Vitamin D 25 Hydroxy 39.4 ng/mL
[2023-12-26 18:44] LABS: Vitamin D 1,25 (OH)2 Total 26 pg/mL (18-72); Vitamin D2 1,25 (OH)2 <8 pg/mL; Vitamin D3 1,25 (OH)2 26 pg/mL
== END 2023-12-23 08:05 | disposition home or self-care (01) ==
PROVIDERS: PCP Family Medicine; Visit Provider Nurse Practitioner
DX: E55.9 Vitamin D deficiency, unspecified (principal); D64.9 Anemia, unspecified; E78.2 Mixed hyperlipidemia; I10 Essential (primary) hypertension
CPT/HCPCS: 36415; 80053; 80061; 82306; 82652; 84443; 85027

== ENCOUNTER 2023-12-29 07:21 | Outpatient (CLI) | payer OTHER, SELFPAY ==
--- NOTE | ~2023-12-29 | US_ITS ---
EXAMINATION: US right upper quadrant DATE: 12/29/2023 08:13 INDICATION: Abnormal liver function tests TECHNIQUE: Multiple grayscale and Doppler ultrasound images of the abdomen were obtained. COMPARISON: CT, 08/24/2022; ultrasound, 05/22/2013 FINDINGS: Bowel gas obscures visualization of the pancreas. The visualized portions of the pancreas a re unremarkable. There is a 1.5 cm cyst in the right hepatic lobe. The liver is otherwise normal with normal echogenicity and echotexture. No surface nodularity. Normal hepatopetal flow in the main port al vein. The gallbladder is normal with no abnormal wall thickening, pericholecystic fluid or stones. The normal common bile duct measures 5 mm. There was no sonographic Zeng sign. IMPRESSION: 1. Normal sonographic study of the gallbladder. Reviewed, dictated and finalized at location B. [employer]
== END 2023-12-29 07:22 ==
LOC: GOSHIMG 07:22
PROVIDERS: PCP Family Medicine; Visit Provider Family Medicine
DX: R74.8 Abnormal levels of other serum enzymes (principal)
CPT/HCPCS: 76705

== ENCOUNTER 2024-01-11 08:13 | Day surgery (SDC) | payer OTHER, SELFPAY ==
[2023-10-13 15:03] VITALS: BMI 23.8
--- NOTE | ~2024-01-11 | XR_ITS ---
EXAMINATION: XR fluoroscopy no charge INDICATION: Bilateral T6-T8 nerve block TECHNIQUE: 122 intraoperative fluoroscopic images are submitted for review. Total fluoroscopic time i s 28.4 seconds. COMPARISON: 08/31/2023 FINDINGS: Fluoroscopic images demonstrate bilateral injections in the thoracic spine. Please refer to procedure note for full details. IMPRESSION: 1. Please refer to procedure note for full details. Reviewed, dictated and finalized at location B. COORDINATOR
[2024-01-11 09:20] VITALS: BP 145/64; PULSE 55; RESP 18; TEMP 36.9; O2SAT 100
--- NOTE | 2024-01-11 09:40 | WPDHPUPDATE1 ---
History and Physical Update Update Date/Time: 01/11/24 09:40 History and Physical has been reviewed, including an updated exam of the patient. There are NO changes in the patient's condition. Risks, benefits, and alternatives have been discussed and questions answered. Patient agrees to proceed with procedure.
--- NOTE | 2024-01-11 09:40 | W.PM.PROC2 ---
Procedure Note - Detailed Date of Procedure 01/11/24 Pre-op Diagnosis Thoracic Spondylosis wo Myelopathy or Radiculopathy, Pain in Thoracic Spine Post-op Diagnosis Same Procedure Performed bilateral T6, T7, T8 medial branch nerve blocks (#2) addressing the bilateral T7-8, T8-9 facet joints under fluoroscopic guidance with contrast control Surgeon Milton Lofton MD Anesthesia Local Description of Procedure INFORMED CONSENT: Risks, benefits and alternatives to the procedure were discussed in detail with the patient who expressed explicit understanding and consent to proceed. Patient was informed verbally and in written form regarding the risks associated with the procedure including the low risk of serious infection, bleeding/bruising, allergic reaction, nerve or organ injury, paralysis, procedural site pain or discomfort, worsening pain and/or mobility, failure to treat and/or disfigurement. The patient expressed explicit understanding and consent to proceed. All materials required for the procedure were available prior to procedure start. Site and side were marked prior to procedure and confirmed in the presence of the patient. PROCEDURE IN DETAIL: The patient was brought to the procedural suite and placed in the prone position. Patient was made comfortable with use of pillows under the head/chest, hips and ankles. Skin overlying the injection site on the affected side(s) was prepared broadly with ChloraPrep applicator and draped in a sterile manner. Aseptic technique was used throughout. The endplates of the vertebral bodies at the site(s) of interest were aligned in the AP view. Ipsilateral oblique angulation was utilized to optimize visualization of the intersection between the superior articulating process and transverse process at each target site. Local anesthesia was established by infiltration with approximately 5 mL of 1% lidocaine via a 1-1/2 inch 27-gauge needle. A 25-gauge 3.5 inch Quincke spinal needle was advanced until the needle tip contacted periosteum at the target site, right T6. Lateral view was utilized to confirm the appropriate placement of the needle tip just anterior to the facet line and superior to the pedicle. In the Lateral view, 0.25 mL of Omnipaque 300 contrast medium was injected after negative aspiration for CSF, blood or other bodily fluid, showing appropriate extra-articular spread of contrast without evidence of intravascular, foraminal or intrathecal placement. A 0.25 mL solution of 2.0% PF lidocaine was injected after negative repeat aspiration. Appropriate spread of the injectate was confirmed with washout of previously injected contrast. No parasthesias were elicited. Needle was removed completely intact without difficulty. The same procedure was repeated for all additional intended levels/structures treated on the ipsilateral side, right T7, T8 medial branches, with identical methodology modified to compensate for different location, with similar results and no evidence of complication. Patient tolerated this well. The same procedure was repeated for all additional intended levels/structures treated on the contralateral side, left T6, T7, T8 medial branches, with identical methodology modified to compensate for different location, with similar results and no evidence of complication. Patient tolerated this well. Images were saved and documented in the patient chart. Patient's skin was cleansed and sterile bandage applied. The patient tolerated the procedure well. The patient was transported to the recovery area in stable condition where they were observed for an appropriate amount of time prior to discharge, without evidence of complication. Patient was instructed on the appropriate completion of a pain diary over the next 12-24 hours. The patient was instructed to avoid excessive activity for the next 48 hours, including climbing and frequent use of stairs. Showers only for 48 hours. They were instructed not to
[2024-01-11 09:53] VITALS: BP 191/85; PULSE 61; RESP 14; O2SAT 100
[2024-01-11 10:08] VITALS: BP 174/81; PULSE 62; RESP 14; O2SAT 100
[2024-01-11] MEDS: LIDOCAINE HCL 1% PF INJ 5 ML VIAL XX (10:11)
[2024-01-11 10:13] VITALS: BP 165/63; PULSE 60; RESP 16; O2SAT 100
== END 2024-01-11 10:37 | disposition home or self-care (01) ==
PROVIDERS: PCP Family Medicine; Visit Provider Anesthesiology Pain Medicine
PROC: (CPT 64490; principal; 2024-01-11 10:00)
DX: M47.814 Spondylosis without myelopathy or radiculopathy, thoracic region (principal); M54.6 Pain in thoracic spine
CPT/HCPCS: 64490; 64491; 99199

== ENCOUNTER 2024-04-20 08:39 | Outpatient (CLI) | payer OTHER, SELFPAY ==
[2024-04-20 14:48] LABS: Erythrocyte Sedimentation Rate 28 mm/hr (0-20)
[2024-04-20 16:35] LABS: CRP < 0.5 mg/dL (<1.0)
[2024-04-25 16:22] LABS: Immunofixation, Serum Normal pattern.
== END 2024-04-20 08:40 | disposition home or self-care (01) ==
PROVIDERS: PCP Family Medicine; Visit Provider Student in an Organized Health Care Education/Training Program
DX: M31.6 Other giant cell arteritis (principal)
CPT/HCPCS: 36415; 85652; 86038; 86039; 86140; 86334

== ENCOUNTER 2024-05-03 09:35 | Outpatient (CLI) | payer OTHER, SELFPAY ==
--- NOTE | ~2024-05-03 | CT_ITS ---
EXAMINATION: CTA BRAIN/CAROTID DATE: 05/03/2024 10:24 INDICATION: Giant cell arteritis TECHNIQUE: Computed tomographic angiography (CTA) of the head and neck was performed with 100 mL Omni paque-350 intravenous contrast. Multiplanar reconstructions and maximum intensity projection 3D-recon structions of the carotid arteries and of the intracranial arteries were created by the technologist on a separate workstation. Precontrast CT of the head was also obtained. Automated exposure control and iterative reconstruction technique were employed.The dose-length product was 1496.57 mGy-cm. COMPARISON: Head CT dated 05/14/2022 and brain MR dated 09/25/2020 FINDINGS: Carotid arteries: Small amount of nonhemodynamically significant atherosclerotic calcific location at the normal calibe r aortic arch and origin of the great vessels arising from the arch There is 50% stenosis of the righ t carotid bulb relative to normal distal artery lumen diameter (NASCET criteria). There is 10% stenos is of the left carotid bulb relative to normal distal artery lumen diameter. Atherosclerotic calcific lesions at the origins of the bilateral vertebral arteries with approximately 70% stenosis on the ri ght and 25% on the left. Normal variant azygos lobe and fissure at the right upper lung. Cervical sof t tissues are unremarkable. Mild cervical spondylosis. Head: Unchanged old lacunar infarct in the right peritrigonal white matter. No acute intracranial hemorrhag e, acute infarction or abnormal extra axial fluid collection. There is moderate scattered white matte r hypoattenuation consistent with chronic small vessel ischemic disease. Symmetric prominence of the sulci and ventricles consistent with mild to moderate age-appropriate diffuse cerebral volume loss. V entricles are normal and symmetric. No mass/mass effect. Changes of bilateral intraocular lens replac ement. The orbits, paranasal sinuses and mastoid air cells are normal. Intracranial arteries: There is no hemodynamically significant stenosis in the vertebral, basilar and internal carotid arter ies. Vertebral arteries are codominant. There are no aneurysms identified. Both A1 and P1 segments a re patent. Cerebral arterial arborization appears symmetric. IMPRESSION: 1. 50% stenosis of the right carotid bulb relative to normal distal artery lumen diameter (NASCET cri teria). 2. 10% stenosis of the left carotid bulb relative to normal distal artery lumen diameter. 3. Atherosclerotic calcifications at the origins of the bilateral codominant vertebral arteries with 70% stenosis in the right and 25% on the left. 4. Small old lacunar infarct at the right peritrigonal white matter and age-related changes 5. Unremarkable cerebral CT angiogram with no aneurysm, thrombosis or hemodynamically significant sadiq nosis. Reviewed, dictated and finalized at location B. IMPRESSION: 1. 50% stenosis of the right carotid bulb relative to normal distal artery lume n diameter (NASCET criteria). 2. 10% stenosis of the left carotid bulb relative to normal distal artery lumen diameter. 3. Atherosclerotic calcifications at the origins of the bilateral codominant ve rtebral arteries with 70% stenosis in the right and 25% on the left. 4. Small old lacunar infarct at the right peritrigonal white matter and age-rel ated changes 5. Unremarkable cerebral CT angiogram with no aneurysm, thrombosis or hemodynam ically significant stenosis.
[2024-05-03 09:57] LABS: Estimated Glomerular Filt Rate 52
== END 2024-05-03 09:36 ==
LOC: MICIMG 09:37
PROVIDERS: PCP Family Medicine; Visit Provider Student in an Organized Health Care Education/Training Program
DX: M31.6 Other giant cell arteritis (principal); I65.23 Occlusion and stenosis of bilateral carotid arteries; I70.0 Atherosclerosis of aorta
CPT/HCPCS: 70496; 70498; Q9967

== ENCOUNTER 2024-06-22 11:40 | Outpatient (NON) | payer OTHER, SELFPAY ==
[2024-06-22 13:51] LABS: Add Urine Microscopic? YES; Appearance Urine Cloudy (Clear); Bacteria Urine 4+ /hpf; Bilirubin Urine Negative (Negative); Blood Urine Non-Hemolyzed Trace (Negative); Color Urine Yellow (Yellow); Glucose Urine UA Negative (Negative); Ketones Urine Negative (Negative); Leukocyte Esterase Ur 3+ LEU/UL (Negative); Need Manual Microscopic Reviewed; Nitrate Urine Positive (Negative); Protein Urine Negative (Negative); RBC Urine 0-2 /hpf (0-2); Squamous Epithelial Cell Urine Occasional /hpf (Few); Urobilinogen Urine 0.2 mg/dL (<2.0); WBC Urine >100 /hpf (0-3)
== END 2024-06-22 11:41 | disposition home or self-care (01) ==
PROVIDERS: PCP Family Medicine; Visit Provider Family Medicine
DX: R30.0 Dysuria (principal)
CPT/HCPCS: 81001

== ENCOUNTER 2024-06-26 15:29 | Outpatient (NON) | payer OTHER, SELFPAY | END 2024-06-26 15:30 | disposition home or self-care (01) | LOC: ANHGOSHLAB 15:30 | PROVIDERS: PCP Family Medicine; Visit Provider Nurse Practitioner | DX: R82.90 Unspecified abnormal findings in urine (principal) | CPT/HCPCS: 87086 ==

== ENCOUNTER 2024-08-10 08:45 | Outpatient (CLI) | payer OTHER, SELFPAY ==
[2024-08-10 18:58] LABS: Hematocrit 36.2 % (37.0-47.0); Hemoglobin 12.1 g/dL (12.0-15.0); Mean Corpuscular HGB Conc 33.4 g/dl (32-36); Mean Corpuscular Hemoglobin 31.7 pg (26-34); Mean Corpuscular Volume 94.8 fl (80-100); Mean Platelet Volume 9.5 fl (7.4-10.4); Platelet Count Result 438 k/mm3 (150-375); Red Blood Count 3.82 M/mm3 (4.2-5.4); Red Cell Distribution Width 13.2 % (11.5-14.5); White Blood Count 7.4 K/mm3 (4.5-10.0)
[2024-08-10 19:03] LABS: Add Urine Microscopic? YES; Appearance Urine Cloudy (Clear); Bacteria Urine None Seen /hpf; Bilirubin Urine Negative (Negative); Blood Urine Negative (Negative); Color Urine Yellow (Yellow); Glucose Urine UA Negative (Negative); Ketones Urine Negative (Negative); Leukocyte Esterase Ur Negative LEU/UL (Negative); Nitrate Urine Negative (Negative); Non Pathogenic Casts 0-2; Protein Urine Negative (Negative); RBC Urine 0-2 /hpf (0-2); Specific Grav Ur 1.008 (1.001-1.035); Squamous Epithelial Cell Urine Occasional /hpf (Few); Urobilinogen Urine 0.2 mg/dL (<2.0); WBC Urine 0-5 /hpf (0-3); pH Urine 7.5 (5.0-9.0)
[2024-08-10 19:15] LABS: Alanine Aminotransferase 20 U/L (6-35); Albumin Level 4.1 g/dL (3.5-5.1); Alkaline Phosphatase 71 U/L (38-126); Anion Gap 8 mmol/L (4-12); Aspartate Amino Transferase 36 U/L (14-36); Bilirubin,Total 0.5 mg/dL (0.2-1.3); Blood Urea Nitrogen 12 mg/dL (7-17); Calcium 9.5 mg/dL (8.4-10.2); Carbon Dioxide 28 mmol/L (22-30); Chloride 94 mmol/L (98-107); Cholesterol 210 mg/dL (0-200); Estimated Glomerular Filt Rate 59; Glucose 84 mg/dL (65-110); HDL Direct 76 mg/dL; Potassium 4.4 mmol/L (3.4-5.0); Sodium 130 mmol/L (137-145); Triglycerides 63 mg/dL (<150)
[2024-08-10 19:26] LABS: LDL Cholesterol Direct 102 mg/dL
[2024-08-10 21:28] LABS: Hemoglobin A1C 5.8 % (<5.7)
== END 2024-08-10 08:46 | disposition home or self-care (01) ==
LOC: ANHGOSHLAB 08:47
PROVIDERS: PCP Family Medicine; Visit Provider Nurse Practitioner
DX: R73.01 Impaired fasting glucose (principal); I10 Essential (primary) hypertension; E55.9 Vitamin D deficiency, unspecified; N39.0 Urinary tract infection, site not specified
CPT/HCPCS: 36415; 80053; 80061; 81001; 82306; 83036; 84443; 85027

== ENCOUNTER 2024-08-15 08:20 | Emergency (ER) | payer OTHER, SELFPAY ==
--- NOTE | ~2024-08-15 | XR_ITS ---
CHEST RADIOGRAPH, PA AND LATERAL CLINICAL HISTORY: syncope, NAUSEA . COMPARISON: 05/23/2010 TECHNIQUE: PA and lateral views of the chest. FINDINGS The cardiomediastinal silhouette is unremarkable. The lungs are clear. Visualized osseous structures and soft tissues are unremarkable. IMPRESSION: No focal infiltrate or effusion. Reviewed, dictated and finalized at location A.
--- NOTE | ~2024-08-15 | CT_ITS ---
EXAMINATION: CT brain wo con DATE: 08/15/2024 10:11 INDICATION: Syncope. Headache. TECHNIQUE: Computed tomography (CT) of the head was performed without intravenous contrast. The mA wa s adjusted according to patient size. Iterative reconstruction technique was employed. The dose-lengt h product was 605.33 mGy-cm. COMPARISON: Head CT 05/03/2024 FINDINGS: There is acute subarachnoid hemorrhage in right parietal lobe, anterior to right temporal l obe, and adjacent to left frontal and temporal lobes. There is acute subarachnoid hemorrhage at anter ior interhemispheric fissure on the left. There is cystic encephalomalacia in the right peritrigonal white matter. There are scattered areas of low attenuation in the cerebral white matter. There is no acute ischemic infarct or abnormal mass lesion. The ventricles are normal in size. There are likely c hanges of ocular lens replacement surgeries. The paranasal sinuses are clear. The mastoid air cells a re normal. IMPRESSION: 1. Acute bilateral subarachnoid hemorrhage. 2. Cystic encephalomalacia in the right peritrigonal white matter. 3. Stable extensive nonspecific cerebral white matter disease, which likely represents chronic small vessel ischemic disease. Reviewed, dictated and finalized at location A. IMPRESSION: 1. Acute bilateral subarachnoid hemorrhage. 2. Cystic encephalomalacia in the right peritrigonal white matter. 3. Stable extensive nonspecific cerebral white matter disease, which likely rep resents chronic small vessel ischemic disease.
[2024-08-15 08:22] VITALS: BP 168/62; PULSE 55; RESP 18; TEMP 36.4; O2SAT 100
--- NOTE | 2024-08-15 08:27 | ECG_ITS ---
Test Date: 2024-08-15 08:34:32 Measurements Intervals [place] Rate: 52 P: 13 MD: 306 QRS: 0 QRSD: 80 T: 18 QT: 406 QTc: 378 Interpretive Statements SINUS BRADYCARDIA WITH FIRST DEGREE AV BLOCK LOW QRS VOLTAGE IN PRECORDIAL LEADS [QRS DEFLECTION < 1.0 mV IN CHEST LEADS] NONSPECIFIC ST SEGMENT ABNORMALITY ABNORMAL ECG No previous ECG available for comparison Electronically Signed On 08-16-2024 06:57:23 CDT by Jerry Edgar M.D.
[2024-08-15 08:43] LABS: Basophils Absolute Auto 0.1 K/mm3 (0.0-0.1); Basophils Percent Auto 0.6 % (0.2-1.2); Eosinophils Absolute Auto 0.1 K/mm3 (0-0.3); Eosinophils Percent Auto 1.4 % (0-4.4); Hematocrit 33.8 % (37.0-47.0); Hemoglobin 11.8 g/dL (12.0-15.0); Immature Granulocyte Absolute 0.06 K/mm3 (0.00-0.031); Immature Granulocyte Percent A 0.6 % (0-0.5); Lymphocytes Absolute Auto 1.19 K/mm3 (0.9-3.2); Lymphocytes Percent Auto 12.2 % (18.3-44.2); Mean Corpuscular HGB Conc 34.9 g/dl (32-36); Mean Corpuscular Hemoglobin 32.3 pg (26-34); Mean Corpuscular Volume 92.6 fl (80-100); Monocytes Absolute Auto 1.1 K/mm3 (0.1-0.6); Monocytes Percent Auto 11.2 % (2.6-8.5); Neutrophils Absolute Auto 7.2 K/mm3 (1.3-6.7); Platelet Count Result 361 k/mm3 (150-375); Red Blood Count 3.65 M/mm3 (4.2-5.4); White Blood Count 9.8 K/mm3 (4.5-10.0)
[2024-08-15 08:47] VITALS: PULSE 54
[2024-08-15 08:58] LABS: Alanine Aminotransferase 22 U/L (6-35); Albumin Level 3.9 g/dL (3.5-5.1); Alkaline Phosphatase 72 U/L (38-126); Anion Gap 9 mmol/L (4-12); Aspartate Amino Transferase 32 U/L (14-36); Bilirubin,Total 0.7 mg/dL (0.2-1.3); Blood Urea Nitrogen 11 mg/dL (7-17); Calcium 9.1 mg/dL (8.4-10.2); Carbon Dioxide 24 mmol/L (22-30); Chloride 97 mmol/L (98-107); Estimated CRCL calculation 29 ml/min; Estimated Glomerular Filt Rate 59; Glucose 144 mg/dL (65-110); Potassium 4.1 mmol/L (3.4-5.0); Sodium 130 mmol/L (137-145)
[2024-08-15 09:30] VITALS: BP 160/65; PULSE 69; RESP 19; O2SAT 99
--- NOTE | 2024-08-15 10:28 | ED.SYNCOPE ---
HPI - Syncope General Chief Complaint: Syncope Stated Complaint: syncopal episode Time Seen by Provider: 08/15/24 08:43 History of Present Illness HPI narrative: Pt presents after apparent syncopal episode. Pt says she was making herself breakfast and the next thing she knew she was on the ground. Pt complains of posterior and bitemporal STEVENS. Pt is nauseated but not vomiting. Pt denies CP or SOB or one sided weakness. Pt has some dizziness. Related Data Home Medications Medication Instructions Recorded Confirmed multivitamin 1 tablet PO DAILY 11/16/19 06/22/24 propylene glycol 0.6 % eye drops 1 drp EACH EYE DAILY 08/25/22 06/22/24 (Systane Complete) aspirin 81 mg tablet,delayed 81 mg PO DAILY 09/22/22 06/22/24 release (Adult Aspirin Regimen) nrdwexfyday-dmx-teqqnwyjw-hrb 1 tablet PO DAILY 09/22/22 06/22/24 149-hyalur 500 mg-500 mg-66.7 mg tablet (Vxylaglckwu-Qhbnglzwbyt-PNG (with antiox)) trimethoprim 100 mg tablet 100 mg PO QHS 11/16/22 06/22/24 latanoprost 0.005 % eye drops 1 drp EACH EYE HS 10/13/23 06/22/24 loteprednol etabonate 0.5 % eye 1 drp EACH EYE BID 10/13/23 06/22/24 drops,suspension timolol 0.5 % eye drops 1 drp EACH EYE Q12H 12/21/23 06/22/24 cholecalciferol (vitamin D3) 50 50 mcg PO DAILY 12/31/23 06/22/24 mcg (2,000 unit) tablet (Vitamin D3) Allergies Allergy/AdvReac Type Severity Reaction Status Date / Time latex Allergy Severe RASH Verified 08/15/24 08:30 codeine Allergy Mild DECREASED Verified 08/15/24 08:30 BP Penicillins Allergy Mild RASH Verified 08/15/24 08:30 Sulfa (Sulfonamide Allergy Unknown unknown Verified 08/15/24 08:30 Antibiotics) epinephrine AdvReac Intermediate Drop in BP Verified 08/15/24 08:30 Review of Systems Review of Systems: All systems reviewed & are unremarkable except as noted in HPI and below PMFSH Past Medical History Medical History Benign essential tremor Bladder prolapse (~2011) BPPV (benign paroxysmal positional vertigo) CVA (cerebral vascular accident) Essential (primary) hypertension Glaucoma open angle Hematuria Hyperlipidemia Hyponatremia IBS (irritable bowel syndrome) Right foot pain (~2018) Seborrheic dermatitis Syncope Temporal arteritis (~2012) Urinary frequency Urinary incontinence Surgical History Surgical History H/O cataract extraction (~2012) History of knee surgery (~2009) Hx of hysterectomy (~2011) Family History Family History Sibling Patient's sister is in good health Family history of malignant neoplasm Patient's brother is Father Family history of malignant neoplasm Patient's father is Mother Family history of malignant neoplasm Patient's mother is Diabetes mellitus Family history of cardiovascular disease Social History Social History Social History: Patient currently lives alone however her son is around to help her all the time. Grady is her POA and does take care of her. She does have a dog at home. She currently wishes to be a full code Smoking status: Never smoker Second hand tobacco smoke exposure: No Alcohol intake: current Drinks per week: 14 Alcohol use details: PT HAS 2 DRINKS PER DAY Substance use: never Substance use type: does not use Do You Feel Safe in your Home?: Yes Lack of Transportation: No Lack of Food: Never True Current Housing: I Have Housing Concerned About Future Housing: No Difficulty Paying Gas/Electric Bills: No Difficulty Paying for Meds: No Currently Unemployed: No Education: High School Diploma/GED Difficulty w/ Childcare or Family Care: No Living arrangements: alone Occupation/Education: retired Additional occupation/education comments: Eighteen ye
[2024-08-15 10:30] VITALS: BP 162/68; PULSE 67; RESP 20; O2SAT 99
[2024-08-15 11:04] LABS: Prothrombin Time 13.7 Seconds (11.1-14.7)
[2024-08-15 11:05] LABS: Partial Thromboplastin Time 28.2 Seconds (22.3-36.8)
[2024-08-15 11:30] VITALS: BP 125/60; PULSE 78; RESP 18; TEMP 36.3; O2SAT 99
== END 2024-08-15 11:55 | disposition short-term general hospital (02) ==
PROVIDERS: Emergency Provider Emergency Medicine; PCP Family Medicine
DX: I60.9 Nontraumatic subarachnoid hemorrhage, unspecified (principal); I10 Essential (primary) hypertension; E78.5 Hyperlipidemia, unspecified; G25.0 Essential tremor; Z86.73 Personal history of transient ischemic attack (TIA), and cerebral infarction without residual deficits
CPT/HCPCS: 36415; 70450; 71046; 80053; 85025; 85610; 85730; 93005; 99291